=== PATIENT | female | born 1935 | race Caucasian/White ===

== ENCOUNTER 2017-10-25 17:44 | Emergency (ER) | payer MEDICARE ==
--- NOTE | 2017-10-25 18:15 | ER Document Report ---
ED General - General Chief Complaint: Fall Injury Stated Complaint: FALL LEG PAIN Time Seen by Provider: 10/25/17 18:10 Notes: 82-year-old female here with complaints of some left-sided hip pain that started after she slipped and fell 3 days ago. At the time of the fall, she refused to go to the emergency department however she was seen by her PCP today who insisted that she come to have an x-ray performed. Pain is worse somewhat with movement. Pain is improved with minimizing movement. She has been taking tramadol for the pain. She currently has a C1-C2 fracture for which she is wearing a collar however states that she did not hit or injure her neck during the fall. TRAVEL OUTSIDE OF THE [place] IN LAST 30 DAYS: No - Related Data Allergies/Adverse Reactions: Penicillins Allergy (Intermediate, Verified 10/25/17 17:46) Past Medical History - Social History Smoking Status: Former Smoker Chew tobacco use (# tins/day): No Frequency of alcohol use: None Drug Abuse: None Family History: Reviewed & Not Pertinent Patient has suicidal ideation: No Patient has homicidal ideation: No - Past Medical History Cardiac Medical History: Denies: Hx Coronary Artery Disease, Hx Heart Attack, Hx Hypertension Pulmonary Medical History: Denies: Hx Asthma, Hx Bronchitis, Hx COPD, Hx Pneumonia Neurological Medical History: Denies: Hx Cerebrovascular Accident, Hx Seizures Renal/ Medical History: Denies: Hx Peritoneal Dialysis GI Medical History: Reports: Hx Gastroesophageal Reflux Disease, Hx Hiatal Hernia. Denies: Hx Hepatitis, Hx Ulcer Musculoskeltal Medical History: Reports Hx Arthritis Infectious Medical History: Denies: Hx Hepatitis Past Surgical History: Reports: Hx Orthopedic Surgery. Denies: Hx Hysterectomy , Hx Mastectomy, Hx Open Heart Surgery, Hx Pacemaker - Immunizations Hx Diphtheria, Pertussis, Tetanus Vaccination: Yes - unknown Hx Pneumococcal Vaccination: 05/22/10 Review of Systems - Review of Systems Notes: See history of present illness for pertinent positive review of systems; otherwise all review of systems have been reviewed and are negative Physical Exam - Vital signs Vitals: Temp Pulse Resp BP Pulse Ox 98.6 F 82 16 139/86 H 99 10/25/17 17:57 10/25/17 17:57 10/25/17 17:57 10/25/17 17:57 10/25/17 17:57 - Notes Notes: PHYSICAL EXAMINATION: GENERAL: Well-appearing and in no acute distress. HEAD: Atraumatic, normocephalic. EYES: Pupils equal round and reactive to light, extraocular movements intact, sclera anicteric, conjunctiva are normal. ENT: nares patent, oropharynx clear without exudates. Moist mucous membranes. NECK: Normal range of motion, supple without lymphadenopathy LUNGS: CTAB and equal. No wheezes rales or rhonchi. HEART: Regular rate and rhythm without murmurs ABDOMEN: Soft, no tenderness. No guarding, no rebound EXTREMITIES: Normal range of motion, no pitting edema. No cyanosis. There is some minimal to mild tenderness palpation of the left hip in the area of the greater trochanter. Minimal ecchymosis seen in this area as well however no deformity. Patient able to stand using her walker with no difficulty or increased pain. NEUROLOGICAL: Cranial nerves grossly intact. Normal sensory/motor exams. PSYCH: Normal mood, normal affect. SKIN: Warm, Dry, normal turgor, no rashes or lesions noted Course - Re-evaluation Re-evalutation: 10/25/17 18:14 MEDICAL DECISION MAKING: Concern for musculoskeletal strain versus fracture versus dislocation I have very low clinical suspicion for any acute emergent pathology Will obtain x-ray and go from there Patient understands and agrees to the plan of care 10/25/17 19:39 X-ray does not show any acute fractures Discussed findings with patient and daughter Instructed follow-up PCP next day or few They understand and agree plan of care - Vital Signs Vital signs: Temp Pulse Resp BP Pulse Ox 98.6 F 82 16 139/86 H 99 10/25/17 17:57 10/25/17 17:57 10/25/17 17:57 10/25/17 17:57 10/25/17 17:57 Discharge - Discharge Clinical Impression: Fall Qualifiers: Encounter type: initial encounter Qualified Code(s): W19.XXXA - Unspecified fall, initial encounter Condition: Good Disposition: HOME, SELF-CARE Additional Instructions: The x-ray did not show any broken bones. Continue using your home pain medications as needed for pain. You were seen in the emergency department at [facility]. If you were given any sedating medications, be sure not to operate heavy machinery (example - driving) and be sure you are not too sedated to walk appropriately. Please followup with your primary physician in the next few days for further management/evaluation. Please return to the emergency department for worsening of symptoms or any symptom that you deem to be concerning or life-threatening. Thank you for allowing us to be part of your care.
--- NOTE | 2017-10-25 19:11 | RADIOLOGY REPORT (SQ) ---
EXAM DESCRIPTION: HIP LEFT AP/LATERAL COMPLETED DATE/TIME: 10/25/2017 6:38 pm REASON FOR STUDY: s/p fall COMPARISON: None. NUMBER OF VIEWS: Two views. TECHNIQUE: AP pelvis and additional frog-leg view of the left hip. LIMITATIONS: None. FINDINGS: MINERALIZATION: Normal. LEFT HIP: No fracture or dislocation. No worrisome bone lesions. RIGHT HIP: No fracture or dislocation. No worrisome bone lesions. PUBIS AND ISCHIUM: No fracture. PELVIS: No fracture. SACRUM: No fracture or dislocation. No worrisome bone lesions. LOWER LUMBAR SPINE: No fracture or dislocation. No worrisome bone lesions. No significant disc disea se. SOFT TISSUES: No findings. OTHER: No other significant finding. IMPRESSION: NEGATIVE STUDY OF THE LEFT HIP AND PELVIS. NO RADIOGRAPHIC EVIDENCE OF ACUTE INJURY. TECHNICAL DOCUMENTATION: JOB ID: [id number] [employer]- All Rights Reserved Reading location - IP/workstation name: [email or web address]
[2017-10-25 19:48] VITALS: BP 149/75
== END 2017-10-25 19:47 | disposition home or self-care (01) ==
LOC: ER 17:44
DX: S89.92XA Unspecified injury of left lower leg, initial encounter (principal); W01.0XXA Fall on same level from slipping, tripping and stumbling without subsequent striking against object, initial encounter; Z88.0 Allergy status to penicillin
CPT/HCPCS: 99283

== ENCOUNTER 2017-10-27 02:59 | Inpatient (IN) | payer MEDICARE ==
--- NOTE | 2017-10-27 03:39 | ER Document Report ---
ED General - General Chief Complaint: Leg Pain Stated Complaint: LEFT LEG PAIN Time Seen by Provider: 10/27/17 03:14 TRAVEL OUTSIDE OF THE [place] IN LAST 30 DAYS: No - HPI Notes: Patient is an 82-year-old female who presents to the ED complaining of increased left hip and left femur pain status post fall 5 days ago. Patient was evaluated 2 days ago and had a negative hip x-ray performed. Patient was ambulatory at that time. Daughter states that she has been ambulatory without any difficulties, but has noticed "soreness" to the left leg and hip. Patient states that this past night her pain became worse and she can no longer weight- bear. Patient states that the pain became very sharp so they called EMS to bring her back for reevaluation. Patient is wearing a c-collar for a C1-C2 fracture from a previous injury in August. Patient has otherwise been eating and drinking without any difficulties. She is urinating normally and having normal bowel movements. No other concerns or complaints at this time. No reinjury. No other falls. Denies any headache, fever, recent head injury, neck pain, changes in vision/speech/mentation/hearing, URI, sore throat, chest pain, palpitations, syncope, cough, shortness of breath, wheeze, dyspnea, abdominal pain, nausea/vomiting/diarrhea, urinary retention, dysuria, hematuria , loss of control of bowel or bladder, numbness/tingling, saddle anesthesia, muscle paralysis/weakness, or rash. - Related Data Allergies/Adverse Reactions: Penicillins Allergy (Intermediate, Verified 10/25/17 17:46) Past Medical History - Social History Smoking Status: Unknown if Ever Smoked Family History: Reviewed & Not Pertinent Patient has suicidal ideation: No Patient has homicidal ideation: No - Past Medical History Cardiac Medical History: Denies: Hx Coronary Artery Disease, Hx Heart Attack, Hx Hypertension Pulmonary Medical History: Denies: Hx Asthma, Hx Bronchitis, Hx COPD, Hx Pneumonia Neurological Medical History: Denies: Hx Cerebrovascular Accident, Hx Seizures Renal/ Medical History: Denies: Hx Peritoneal Dialysis GI Medical History: Reports: Hx Gastroesophageal Reflux Disease, Hx Hiatal Hernia. Denies: Hx Hepatitis, Hx Ulcer Musculoskeltal Medical History: Reports Hx Arthritis Infectious Medical History: Denies: Hx Hepatitis Past Surgical History: Reports: Hx Orthopedic Surgery, Hx Urinary Tract Surgery - bladder reconstruction. Denies: Hx Hysterectomy, Hx Mastectomy, Hx Open Heart Surgery, Hx Pacemaker - Immunizations Hx Diphtheria, Pertussis, Tetanus Vaccination: Yes - unknown Hx Pneumococcal Vaccination: 05/22/10 Review of Systems - Review of Systems -: Yes All other systems reviewed and negative Physical Exam - Vital signs Vitals: Resp Pulse Ox 12 99 10/27/17 03:13 10/27/17 03:13 - Notes Notes: PHYSICAL EXAMINATION: GENERAL: Well-appearing, well-nourished and in no acute distress. A&Ox4. Answers questions appropriately. HEAD: Atraumatic, normocephalic. EYES: Pupils equal round and reactive to light, extraocular movements intact, sclera anicteric, conjunctiva are normal. NECK: Normal range of motion, supple without lymphadenopathy. c-collar in place. LUNGS: Breath sounds clear to auscultation bilaterally and equal. No wheezes rales or rhonchi. HEART: Regular rate and rhythm without murmurs, rubs, gallops. ABDOMEN: Soft, nontender, nondistended abdomen. No guarding, no rebound. No masses appreciated. Normal bowel sounds present. No CVA tenderness bilaterally. Musculoskeletal: Rt leg: LROM to passive/active due to pain. Strength 4+/5. + tenderness to the left lateral hip and to the left femur. N/V intac distal. Niyah neg. b/l. Calves are soft, non-tender. No thigh erythema, warmth, swelling, or obvious ecchymosis. Extremities: No cyanosis, clubbing, or edema b/l. Peripheral pulses 2+. Capillary refill less than 3 seconds. NEUROLOGICAL: Cranial nerves grossly intact. Normal speech, normal gait. Normal sensory, motor exams PSYCH: Normal mood, normal affect. SKIN: Warm, Dry, normal turgor, no rashes or lesions noted. Course - Re-evaluation Re-evalutation: 10/27/17 04:27 Ct left hip ordered Femur XR ordered. Vitals acceptable. Report: "Acute mildly displaced subcapital fracture of the left hip. The femoral neck is displaced superiorly relative to the femoral head. Degree of displacement is significantly increased from the comparison study." Fentanyl ordered. Pt already given toradol and tylenol. Pre-op labs/imaging ordered. CBC, CMP, CXR, EKG unremarkable for acute pathology. Pt made NPO. 10/27/17 05:[address] Osborn who will accept patient as a consult. Spoke with Dr. Ellis who accepted patient for admit. - Vital Signs Vital signs: Temp Pulse Resp BP Pulse Ox 98.5 F 20 176/70 H 99 10/27/17 03:14 10/27/17 04:19 10/27/17 04:19 10/27/17 04:19 - Laboratory Result Diagrams: 10/27/17 04:40 10/27/17 04:40 Laboratory results interpreted by me: 10/27/17 10/27/17 04:40 04:40 WBC 13.2 H RBC 3.66 L Hgb 11.1 L Hct 33.1 L Seg Neutrophils % 81.3 H Lymphocytes % 9.5 L Absolute Neutrophils 10.8 H BUN 22 H Creatinine 0.50 L Discharge - Discharge Clinical Impression: Hip fracture, left Qualifiers: Encounter type: initial encounter Fracture type: closed Qualified Code(s): S72.002A - Fracture of unspecified part of neck of left femur, initial encounter for closed fracture Condition: Stable Disposition: ADMITTED INPATIENT Unit Admitted: Medical Floor Referrals: SEDRICK SALEH FNP [Primary Care Provider] - Follow up as needed
[2017-10-27] MEDS ORDERED: ACETAMINOPHEN 325 MG TABLET PO ONE (03:52)
--- NOTE | 2017-10-27 03:58 | RADIOLOGY REPORT (SQ) ---
EXAM DESCRIPTION: CT PELVIS WITHOUT CONTRAST CLINICAL HISTORY: increased left hip pain COMPARISON: 10/25/2017 TECHNIQUE: CT of the pelvis without IV contrast. FINDINGS: Pelvis: Aortoiliac atherosclerosis. Fat-containing right inguinal hernia. Prior hysterectomy. Urinary bladder is unremarkable. No free pelvic fluid or lymphadenopathy. No dilated loops of visualized large or small bowel. No evidence of appendicitis. There is an acute mildly displaced subcapital fracture of the left hip. The femoral neck is displaced superiorly relative to the femoral head. Degree of displacement is significantly increased from the comparison study. Diffuse osteopenia. Degenerative change of the hips, sacroiliac joints, visualized lumbar spine. No lytic osseous lesions identified. DLP: 227.53 mGy-cm IMPRESSION: 1. Acute mildly displaced subcapital fracture of the left hip. The femoral neck is displaced superiorly relative to the femoral head. Degree of displacement is significantly increased from the comparison study. This exam was performed according to our departmental dose-optimization program, which includes automated exposure control, adjustment of the mA and/or kV according to patient size and/or use of iterative reconstruction technique.
--- NOTE | 2017-10-27 04:09 | RADIOLOGY REPORT (SQ) ---
EXAM DESCRIPTION: FEMUR LEFT CLINICAL HISTORY: increased left mid femur pain COMPARISON: None. FINDINGS: 2 views of the left femur. Acute mildly displaced subcapital fracture of the left femoral neck. Atherosclerotic vascular calcification. Phleboliths in the pelvis. Osteopenia. IMPRESSION: Acute mildly displaced subcapital fracture of the left femoral neck.
[2017-10-27] MEDS ORDERED: FENTANYL CITRATE INJ/PF 100 MCG/2 ML AMPUL IV ONE ×2 (04:26→05:49)
--- NOTE | 2017-10-27 04:36 | RADIOLOGY REPORT (SQ) ---
EXAM DESCRIPTION: CHEST SINGLE VIEW CLINICAL HISTORY: pre-op work up hip surgery. COMPARISON: None. FINDINGS: Single frontal view of the chest. Atherosclerotic calcification tortuosity of thoracic aorta. Heart is not enlarged. Leads overlie the chest. No consolidation, pneumothorax, or pleural effusion. No acute osseous abnormality identified. Upper abdominal soft tissues are unremarkable. IMPRESSION: 1. No acute pneumonic process identified.
[2017-10-27 04:47] LABS: ABSOLUTE BASOPHILS # (AUTO) 0.1 10^3/uL (0.0-0.2); ABSOLUTE EOSINOPHILS # (AUTO) 0.1 10^3/uL (0.0-0.6); ABSOLUTE LYMPHOCYTES (AUTO) 1.3 10^3/uL (0.5-4.7); ABSOLUTE NEUT (AUTO) 10.8 10^3/uL (1.7-8.2); BASOPHILS % (AUTO) 0.7 % (0-2); EOSINOPHILS % (AUTO) 1.1 % (0-6); HEMATOCRIT 33.1 % (36.0-47.0); HEMOGLOBIN 11.1 g/dL (12.0-15.5); LYMPHOCYTES % (AUTO) 9.5 % (13-45); MEAN CORPUSCULAR HEMOGLOBIN 30.4 pg (27.0-33.4); MEAN CORPUSCULAR HGB CONC 33.5 g/dL (32.0-36.0); MEAN CORPUSCULAR VOLUME 91 fl (80-97); MONOCYTES % (AUTO) 7.4 % (3-13); PLATELET COUNT 409 10^3/uL (150-450); RED BLOOD COUNT 3.66 10^6/uL (3.72-5.28); RED CELL DISTRIBUTION WIDTH 13.8 % (11.5-14.0); SEGMENTED NEUTROPHILS % (AUTO) 81.3 % (42-78); TOTAL CELLS COUNTED % (AUTO) 100 %; WHITE BLOOD COUNT 13.2 10^3/uL (4.0-10.5)
[2017-10-27 05:03] LABS: ALANINE AMINOTRANSFERASE 19 U/L (9-52); ALBUMIN 3.8 g/dL (3.5-5.0); ALKALINE PHOSPHATASE 105 U/L (38-126); ANION GAP 12 (5-19); ASPARTATE AMINO TRANSFERASE 18 U/L (14-36); BILIRUBIN,DIRECT 0.2 mg/dL (0.0-0.4); BILIRUBIN,TOTAL 0.3 mg/dL (0.2-1.3); BLOOD UREA NITROGEN 22 mg/dL (7-20); CALCIUM 9.5 mg/dL (8.4-10.2); CARBON DIOXIDE 23 mmol/L (22-30); CHLORIDE 102 mmol/L (98-107); GLUCOSE 101 mg/dL (75-110); POTASSIUM 3.7 mmol/L (3.6-5.0); SODIUM 137.3 mmol/L (137-145); TOTAL PROTEIN 6.6 g/dL (6.3-8.2)
[2017-10-27] MEDS ORDERED: NORMAL SALINE 1000 ML 1,000 ML IV ONE (05:40)
[2017-10-27 06:02] LABS: INTERNATIONAL RATION (INR) 0.94; PROTHROMBIN TIME 13.2 SEC (11.4-15.4)
[2017-10-27] MEDS ORDERED: GLUCAGON,HUMAN RECOMB 1 MG INJ SUBCUT PRN (06:02)
[2017-10-27] MEDS ORDERED: ALBUTEROL SULFATE 0.083% NEB 2.5 MG/3 ML AMPUL NEB PRN (06:02)
[2017-10-27] MEDS ORDERED: DEXTROSE 50%-WATER 25 GM/50 ML DISP.SYRIN IV PRN ×2 (06:02)
[2017-10-27] MEDS ORDERED: PROMETHAZINE HCL INJ 25 MG/1 ML VIAL IV PRN ×3 (06:02→14:55)
[2017-10-27] MEDS ORDERED: DEXTROSE 40% GEL 15 GM TUBE PO PRN ×2 (06:02)
[2017-10-27] MEDS ORDERED: ACETAMINOPHEN 650 MG SUPP.RECT PR PRN (06:02)
[2017-10-27 06:03] LABS: PARTIAL THROMBOPLASTIN TIME 31.4 SEC (23.5-35.8)
[2017-10-27 06:05] LABS: APPEARANCE,URINE SLIGHTLY-CLOUDY; BILIRUBIN,URINE NEGATIVE (NEGATIVE); COLOR,URINE YELLOW; GLUCOSE, URINE NEGATIVE (NEGATIVE); KETONES,URINE TRACE mg/dL (NEGATIVE); LEUKOCYTE ESTERASE,URINE NEGATIVE (NEGATIVE); NITRITE,URINE NEGATIVE (NEGATIVE); PROTEIN,URINE NEGATIVE (NEGATIVE); URINE SPECIFIC GRAVITY 1.009; UROBILINOGEN,URINE NEGATIVE mg/dL (<2.0)
[2017-10-27] MEDS ORDERED: HYDRALAZINE HCL INJ/PF 20 MG/1 ML SDV IV PRN (06:06)
--- NOTE | 2017-10-27 06:50 | PDOC CONSULTATION ---
Consultation Consult Date: 10/27/17 Consult reason:: Left hip pain History of Present Illness Admission Date/PCP: 10/27/17 05:57 DELMI ANTHONY History of Present Illness: KARI DAWSON is a 82 year old female The patient is a 82-year-old white female who is at least a household ambulator probably limited community ambulator who fell on Tuesday and had subsequent left hip pain. In the emergency room visit led to an x-ray which was interpreted as normal. The patient presented overnight with an inability to weight-bear in the left lower extremity x-rays demonstrated a displaced left femoral neck fracture. Orthopedics is consulted for fracture management. Past Medical History Cardiac Medical History: Denies: Coronary Artery Disease, Myocardial Infarction, Hypertension Pulmonary Medical History: Denies: Asthma, Bronchitis, Chronic Obstructive Pulmonary Disease (COPD), Pneumonia Neurological Medical History: Denies: Seizures GI Medical History: Reports: Gastroesophageal Reflux Disease, Hiatal Hernia Denies: Hepatitis Musculoskeltal Medical History: Reports: Arthritis Hematology: Reports: Anemia - 04/2011 Denies: Sickle Cell Disease Past Surgical History Past Surgical History: Reports: Orthopedic Surgery - Knee replacement Denies: Amputation, Hysterectomy, Mastectomy, Pacemaker Social History Information Source: Patient, Relative, [facility] Records Smoking Status: Unknown if Ever Smoked Family History Family History: Reviewed & Not Pertinent Parental Family History Reviewed: No Children Family History Reviewed: No Sibling(s) Family History Reviewed.: No Medication/Allergy Home Medications: Bupropion HCl [Wellbutrin Sr] 150 mg PO DAILY 07/23/11 Ibuprofen [Motrin Ib] 600 mg PO PRN 07/23/11 Multivit,Tx with Iron,Minerals [Complete Multivitamin] 1 each PO DAILY 07/23/11 Lisinopril 20 mg PO DAILY 04/08/14 Allergies/Adverse Reactions: Penicillins Allergy (Intermediate, Verified 10/25/17 17:46) Review of Systems All systems: as per H Physical Exam Vital Signs: Temp Pulse Resp BP Pulse Ox 36.9 C 16 155/66 H 97 10/27/17 03:14 10/27/17 06:01 10/27/17 06:00 10/27/17 06:01 Physical Exam: Patient is a frail-appearing elderly white female lying [facility]. She is wearing a cervical collar from previous C1-C2 injury in August following a fall. She is alert oriented appropriate. She is surrounded by caring family. General appearance: PRESENT: mild distress Head exam: PRESENT: normocephalic Respiratory exam: PRESENT: unlabored Cardiovascular exam: PRESENT: RRR Pulses: PRESENT: +1 pedal pulses bilateral Vascular exam: PRESENT: normal capillary refill GI/Abdominal exam: PRESENT: soft Rectal exam: PRESENT: deferred Extremities exam: PRESENT: other - Left lower extremity shortened and externally rotated. Distal neurovascular examination is intact. Skin is intact. Neurological exam: PRESENT: alert, awake, oriented to person, oriented to place , oriented to time, oriented to situation. ABSENT: motor sensory deficit Psychiatric exam: PRESENT: appropriate affect, normal mood. ABSENT: homicidal ideation, suicidal ideation Skin exam: PRESENT: dry, intact, warm. ABSENT: cyanosis, rash Results Impressions: Femur X-Ray 10/27/17 03:24 IMPRESSION: Acute mildly displaced subcapital fracture of the left femoral neck. Lower Extremity CT 10/27/17 03:26 IMPRESSION: 1. Acute mildly displaced subcapital fracture of the left hip. The femoral neck is displaced superiorly relative to the femoral head. Degree of displacement is significantly increased from the comparison study. This exam was performed according to our departmental dose-optimization program, which includes automated exposure control, adjustment of the mA and/or kV according to patient size and/or use of iterative reconstruction technique. Chest X-Ray 10/27/17 04:18 IMPRESSION: 1. No acute pneumonic process identified. Status: Imported from PACS Assessment & Plan - Diagnosis (1) Left displaced femoral neck fracture Is this a current diagnosis for this admission?: Yes Plan: Patient be best served with hemiarthroplasty. This be performed this morning pending or availability and medical clearance. (2) C1 cervical fracture Is this a current diagnosis for this admission?: Yes Plan: This is a result of a fall in August. Patient is being treated in [facility] with a cervical collar. This remained in place throughout her care. - Time Time Spent: 50 to 70 Minutes Anticipated discharge: SNF Within: Other
--- NOTE | 2017-10-27 09:22 | PDOC H&P ---
History of Present Illness Admission Date/PCP: 10/27/17 05:57 DELMI ANTHONY Patient complains of: Left hip fracture post mechanical fall few days ago. History of Present Illness: KARI DAWSON is a 82 year old female with history of C1-C2 fracture (post fall on 08/2017, currently in hard collar), osteoporosis and hypertension admitted with above-mentioned complaints. Most of the history was obtained from her daughter at bedside. The patient apparently has an unsteady gait and uses a walker to ambulate which she sometimes forgets to use it. On 10/21/2017 while standing in the kitchen, she apparently tried to turn and lost her balance. She fell onto her left side and subsequently complained of generalized pain. She was brought to this hospital 3 days later on 10/25/2017 where an x-ray of her left hip and pelvis were done. They were both negative for any acute findings so she was discharged home. The patient continued to ambulate with her walker, but yesterday evening while trying to get up off the toilet, she was unable to bear weight. She started complaining of severe left hip pain so her family decided to bring her back to the hospital for further evaluation. There was no report of any chest pain, shortness of breath, nausea vomiting, fever chills, dizziness or lightheadedness or any syncope but the patient felt nauseous yesterday. She denied any diarrhea but she has chronic constipation for about a week now. She was started recently on Amitiza by her PCP. She denied any urinary symptoms. In the ED, her temperature was not recorded, heart rate 83, respiratory rate 17 , blood pressure 155/66 with oxygen saturation of 98% on room air. Her WBC was 13.2 but her UA and chest x-ray were both negative. An x-ray of her left hip and a CAT scan of left lower extremity were done which showed acute mildly displaced subcapital fracture of the left femoral head. She received 50 mcg IV fentanyl 2. Past Medical History Medical History: Other - According to family and based on previous records. Cardiac Medical History: Reports: Hypertension - According to the patient/ family and based on previous records. Denies: Coronary Artery Disease, Myocardial Infarction Pulmonary Medical History: Denies: Asthma, Bronchitis, Chronic Obstructive Pulmonary Disease (COPD), Pneumonia Neurological Medical History: Denies: Seizures GI Medical History: Reports: Gastroesophageal Reflux Disease, Hiatal Hernia Denies: Hepatitis Musculoskeltal Medical History: Reports: Arthritis, Other - osteoporosis Psychiatric Medical History: Reports: Depression Hematology: Reports: Anemia - 04/2011 Denies: Sickle Cell Disease Past Surgical History Past Surgical History: Reports: Hysterectomy, Orthopedic Surgery - right Knee replacement 04/2017., Other - right cornea surgery and cataract bilaterally. several bladder surgeries. Denies: Amputation, Mastectomy, Pacemaker Social History Smoking Status: Former Smoker Cigarettes Packs Per Day: 0 - Used to smoke less than a pack a day for a few years. Frequency of Alcohol Use: None Hx Recreational Drug Use: No - Advance Directive Resuscitation Status: Full Code Family History Parental Family History Reviewed: Yes - Mother: CAD and diabetes. Brother CAD. Children Family History Reviewed: No Sibling(s) Family History Reviewed.: Yes Medication/Allergy Home Medications: Amlodipine Besylate [Norvasc 5 mg Tablet] 5 mg PO DAILY 10/27/17 Aspirin [Aspirin 81 mg Chewable Tablet] 81 mg PO DAILY 10/27/17 Bupropion HCl [Wellbutrin Sr 150 mg Tablet] 1 tab PO Q12 10/27/17 Dorzolamide HCl/Timolol Maleat [Cosopt Eye Drops] 1 drop OU BID 10/27/17 Lubiprostone [Amitiza 24 Mcg Capsule] 24 mcg PO BID 10/27/17 Meloxicam [Mobic] 7.5 mg PO DAILY 10/27/17 Omeprazole 20 mg PO QHS 10/27/17 Prednisolone Acetate [Pred Forte] 1 drop OS BID 10/27/17 Tramadol HCl [Ultram 50 mg Tablet] 50 mg PO Q4HP PRN 10/27/17 Allergies/Adverse Reactions: Penicillins Allergy (Intermediate, Verified 10/25/17 17:46) Review of Systems ROS unobtainable: Other - Pertinent positives and negatives as detailed in the HPI. Physical Exam Vital Signs: Temp Pulse Resp BP Pulse Ox 98.5 F 16 155/66 H 97 10/27/17 03:14 10/27/17 06:01 10/27/17 06:00 10/27/17 06:01 General appearance: PRESENT: no acute distress, thin Head exam: PRESENT: atraumatic, normocephalic Eye exam: PRESENT: PERRLA Ear exam: PRESENT: normal external ear exam Mouth exam: PRESENT: dry mucosa, tongue midline Neck exam: PRESENT: other - Limited range of motion of her neck (in hard collar post C1 C2 fx in 08/2017. Respiratory exam: PRESENT: decreased breath sounds. ABSENT: rales, rhonchi, wheezes Cardiovascular exam: PRESENT: RRR - S1 S2 normal., systolic murmur Pulses: PRESENT: normal dorsalis pedis pul GI/Abdominal exam: PRESENT: normal bowel sounds, soft. ABSENT: distended, guarding, rebound, tenderness Rectal exam: PRESENT: deferred Extremities exam: PRESENT: other - Unable to move her left leg since acute hip fracture.. ABSENT: pedal edema Neurological exam: PRESENT: alert, awake, oriented to person, motor sensory deficit - left leg since acute hip fracture. Skin exam: PRESENT: dry, intact, warm. ABSENT: cyanosis, rash Results Laboratory Results: CBC: WBC 13.2, hemoglobin 11.1, hematocrit 33.1, MCV 91, RDW 13.8, platelets 409. CMP: Sodium 137.3, potassium 3.7, chloride 102, bicarb 23, anion gap 12, BUN 22 , creatinine 0.5, liver enzymes within normal limits. PT/INR: Pending. Troponin 1: pending. UA negative. EKG Comments: EKG: Sinus rhythm, ventricular rate 75, axis +20, QTC prolongation, first- degree AV block, no acute changes. No previous EKG to compare. Impressions: Femur X-Ray 10/27/17 03:24 IMPRESSION: Acute mildly displaced subcapital fracture of the left femoral neck. Lower Extremity CT 10/27/17 03:26 IMPRESSION: 1. Acute mildly displaced subcapital fracture of the left hip. The femoral neck is displaced superiorly relative to the femoral head. Degree of displacement is significantly increased from the comparison study. This exam was performed according to our departmental dose-optimization program, which includes automated exposure control, adjustment of the mA and/or kV according to patient size and/or use of iterative reconstruction technique. Chest X-Ray 10/27/17 04:18 IMPRESSION: 1. No acute pneumonic process identified. Assessment & Plan - Diagnosis (1) Left displaced femoral neck fracture Is this a current diagnosis for this admission?: Yes Plan: post mechanical fall. CBC, BMP, UA, twelve-lead EKG and chest x-ray reviewed. PT/INR and troponin 1 still pending. I will follow-up the rest of her blood work but I do not anticipate any delay in proceeding to surgery today. (2) Leukocytosis Is this a current diagnosis for this admission?: Yes Plan: Possibly secondary to hemoconcentration and/or stress. There is no evidence of infection at this time. UA and chest x-ray are both negative. Will start gentle hydration and repeat CBC in a.m. (3) Essential hypertension Is this a current diagnosis for this admission?: No Plan: Will continue to monitor and resume her blood pressure medications as indicated. (4) C1 cervical fracture Is this a current diagnosis for this admission?: No Plan: History of C1-C2 cervical fracture post mechanical fall in 08/2017. The patient is currently in hard collar and she is following as outpatient. Apparently, she is on tramadol twice a day and she also takes Flexeril occasionally per her daughter. Advised to avoid Flexeril in elderly if at all possible. (5) Cardiac murmur Is this a current diagnosis for this admission?: No Plan: by history. (6) Osteoporosis Is this a current diagnosis for this admission?: No Plan: Will start calcium and vitamin D. Further management can be done as outpatient. - Time Time Spent: 50 to 70 Minutes - Inpatient Certification Based on my medical assessment, after consideration of the patient's comorbidities, presenting symptoms, or acuity I expect that the services needed warrant INPATIENT care.: Yes I certify that my determination is in accordance with my understanding of Medicare's requirements for reasonable and necessary INPATIENT services [42 CFR 412.3e].: Yes
[2017-10-27] MEDS ORDERED: CALCIUM CARBONATE 250 MG/VITAMIN D3 125 UNIT TABLET PO ONE (10:00)
--- NOTE | 2017-10-27 10:32 | EKG REPORT ---
SEVERITY:- ABNORMAL ECG - SINUS RHYTHM FIRST DEGREE AV BLOCK PROBABLE LEFT ATRIAL ABNORMALITY : Confirmed by: Nehemias Berrios 27-Oct-2017 10:32:07
[2017-10-27] MEDS: NORMAL SALINE 1000 ML 1,000 ML IV PRN (11:28)
[2017-10-27] MEDS: FENTANYL CITRATE INJ/PF 100 MCG/2 ML AMPUL IV PRN ×2 (11:28→22:23)
--- NOTE | 2017-10-27 11:35 | Progress Note ---
Provider Note Provider Note: KARI DAWSON is a 82 year old female who presented to [facility] for a L hip fracture. From the hospitalist perspective, the patient is medically cleared for surgery. Her recent ECHO from 04/2017 shows chronic mild aortic stenosis, LVEF 72%. EKG shows NSR. Coags and cardiac enzymes are benign. Creatinine 0.5 and evidence of very mild anemia (Hgb 11/Hct 33) not requiring transfusion. Patient has a recent history of falling and suffering a C1 and C2 fracture. The patient was evaluated at [facility] by Neurosurgery and they did not feel that surgery was necessary, she was subsequently discharged with a [place] J collar and told to follow up in 4-6 weeks. Anesthesia, Dr. Noble, is aware that the patient is cleared for surgery. Plan to take patient to OR today.
[2017-10-27] MEDS ORDERED: MIDAZOLAM 2 MG/2 ML INJ ONE (12:21)
[2017-10-27] MEDS ORDERED: PROPOFOL INJ 200 MG/20 ML VIAL IV ONE (12:21)
[2017-10-27] MEDS ORDERED: KETAMINE HCL INJ 500 MG/10 ML VIAL ONE (12:21)
[2017-10-27] MEDS ORDERED: ACETAMINOPHEN 100 ML IV ONE (12:21)
[2017-10-27] MEDS ORDERED: FENTANYL CITRATE INJ/PF 100 MCG/2 ML AMPUL ONE (12:21)
[2017-10-27] MEDS ORDERED: THROMBIN (BOVINE) TOPICAL 20000 UNIT VIAL ONE (12:27)
[2017-10-27] MEDS ORDERED: THROMBIN (BOVINE) 5000 UNIT EPITAXIS KIT ONE (12:27)
[2017-10-27] MEDS ORDERED: BUPIVACAINE INJ/PF LIPOSOME/PF 266 MG/20 ML SDV ONE (12:28)
[2017-10-27] MEDS ORDERED: VANCOMYCIN HCL INJ 500 MG VIAL ONE (12:48)
[2017-10-27] MEDS ORDERED: TRANEXAMIC ACID INJ/PF 1,000 MG/10 ML SDV IV ONE ×3 (12:49→16:08)
[2017-10-27] MEDS ORDERED: EPHEDRINE SULFATE INJ 50 MG/1 ML AMPULE ONE (13:03)
[2017-10-27] MEDS ORDERED: VASOPRESSIN INJ 20 UNIT/1 ML VIAL ONE (13:03)
[2017-10-27] MEDS ORDERED: BUPIVACAINE HCL/DEX-WATER/PF 15 MG/2 ML AMPULE ONE (13:34)
[2017-10-27] MEDS ORDERED: DEXAMETHASONE SOD PHOSPHATE INJ 4 MG/1 ML VIAL ONE (13:41)
[2017-10-27] MEDS ORDERED: ONDANSETRON HCL INJ/PF 4 MG/2 ML SDV ONE (13:41)
[2017-10-27] MEDS ORDERED: LIDOCAINE 2% INJ-PF (20 MG/ML) 2 ML AMPUL ONE (13:41)
--- NOTE | 2017-10-27 14:13 | Operative Report ---
Operative Report DATE OF SURGERY: 10/27/17 PREOPERATIVE DIAGNOSIS: Left femoral neck fracture OPERATION: Left proximal femoral hemiarthroplasty ANESTHESIA: Spinal TISSUE REMOVED OR ALTERED: Bone to pathology ESTIMATED BLOOD LOSS: 50 PROCEDURE: With the patient in a right lateral decubitus position the left lower extremity hindquarter prepped and draped in a sterile fashion. A curvilinear incision made over the greater trochanter a posterior approach the hip was taken. The femur was retracted anteriorly and underlying femoral neck and head are retrieved using a corkscrew. The femoral head was measured and noted to be 44 millimeters. Attention is now turned to the femur. Access is gained to the femoral canal using a box osteotome to the piriformis fossa. The femur is then prepared using a series of tapered broaches until a Madelin accolade 2 number 5 broach is seated. A trial reduction was now performed using a 44 head and standard neck. Leg length was restored and there is excellent anterior posterior stability. A decision was made to proceed with this construct. All trial implants were removed. The final number 5 femoral stem is impacted into the canal. The standard neck is impacted onto the trunnion. Final unipolar head 44 millimeters is impacted onto the neck. The hip was reduced. The wound is copiously irrigated with pulsed lavage. A subsequent closed in layers using Vicryl and valerie. A sterile dressing is applied. The patient was returned to the recovery room in satisfactory condition.
[2017-10-27] MEDS ORDERED: DIPHENHYDRAMINE HCL 50 MG/ML VIAL IV PRN (14:55)
[2017-10-27] MEDS ORDERED: FENTANYL CITRATE INJ/PF 100 MCG/2 ML AMPUL IV PRN ×3 (14:55)
[2017-10-27] MEDS ORDERED: ONDANSETRON HCL INJ/PF 4 MG/2 ML SDV IV PRN (14:55)
[2017-10-27] MEDS ORDERED: MEPERIDINE HCL/PF INJ 25 MG/1 ML DISP.SYRIN IV PRN (14:55)
[2017-10-27] MEDS ORDERED: ONDANSETRON 4 MG TAB.RAPDIS PO PRN (15:19)
--- NOTE | 2017-10-27 16:07 | RADIOLOGY REPORT (SQ) ---
EXAM DESCRIPTION: PELVIS AP COMPLETED DATE/TIME: 10/27/2017 3:29 pm REASON FOR STUDY: post-op COMPARISON: None. NUMBER OF VIEWS: One view TECHNIQUE: Digital radiographic images of the pelvis post-procedure LIMITATIONS: None. FINDINGS: BONES: No worrisome or unexpected findings post-procedure. DEVICE: Bi-polar prothesis. Device appears in appropriate location. SOFT TISSUES: No worrisome findings. Expected postoperative soft tissue changes. IMPRESSION: SATISFACTORY POSTOPERATIVE PELVIS. TECHNICAL DOCUMENTATION: JOB ID: [id number] [employer]- All Rights Reserved Reading location - IP/workstation name: [email or web address]
[2017-10-27] MEDS: FAMOTIDINE 20 MG TABLET PO SCH ×2 (17:10→22:23)
[2017-10-27] MEDS: HEPARIN SOD (PORCINE) 5,000 UNIT/ML 1 ML SYRINGE SUBCUT SCH ×2 (17:10→22:23)
[2017-10-27] MEDS: CALCIUM CARBONATE 250 MG/VITAMIN D3 125 UNIT TABLET PO SCH (17:37)
[2017-10-27] MEDS: FENTANYL 12 MCG/HR PATCH.TD72 TD SCH (18:27)
--- NOTE | 2017-10-27 18:36 | Progress Note ---
Provider Note Provider Note: Patient seen this morning prior to surgery. She is awake, alert, oriented, and participatory in care. She states that her pain is well controlled with fentanyl, and that it is "tolerable." Will follow up with the patient when she returns from the OR
[2017-10-28] MEDS ORDERED: VANCOMYCIN HCL 1,000 MG in DEXTROSE 5%-WATER 250 ML IV ONE (02:00)
[2017-10-28] MEDS: FENTANYL CITRATE INJ/PF 100 MCG/2 ML AMPUL IV PRN ×2 (06:00→08:50)
[2017-10-28] MEDS: HEPARIN SOD (PORCINE) 5,000 UNIT/ML 1 ML SYRINGE SUBCUT SCH ×3 (06:00→21:44)
--- NOTE | 2017-10-28 06:22 | PDOC PROGRESS REPORT ---
Subjective Progress Note for:: 10/28/17 Reason For Visit: LEFT HIP FRACTURE. 82-year-old white female status post left proximal femoral hemiarthroplasty for femoral neck fracture postop day 1. Patient complaining about constipation and incisional pain. Physical Exam Vital Signs: Temp Pulse Resp BP Pulse Ox 36.6 C 102 H 19 142/85 H 98 10/28/17 04:50 10/28/17 04:50 10/28/17 04:50 10/28/17 04:50 10/28/17 04:50 Intake & Output 10/26/17 10/27/17 10/28/17 06:59 06:59 06:59 Intake Total 3540 Output Total 3325 Balance 215 Weight 51.9 kg General appearance: PRESENT: no acute distress Head exam: PRESENT: normocephalic Respiratory exam: PRESENT: unlabored Cardiovascular exam: PRESENT: RRR Pulses: PRESENT: +1 pedal pulses bilateral Vascular exam: PRESENT: normal capillary refill GI/Abdominal exam: PRESENT: soft Rectal exam: PRESENT: deferred Extremities exam: PRESENT: other - Left hip dressing clean dry and intact. Leg lengths are equal. Distal neurovascular examination is intact. Neurological exam: PRESENT: alert, awake, oriented to person, oriented to place , oriented to time, oriented to situation. ABSENT: motor sensory deficit Psychiatric exam: PRESENT: appropriate affect, normal mood. ABSENT: homicidal ideation, suicidal ideation Skin exam: PRESENT: dry, intact, warm. ABSENT: cyanosis, rash Results Impressions: Pelvis X-Ray 10/27/17 00:00 IMPRESSION: SATISFACTORY POSTOPERATIVE PELVIS. Femur X-Ray 10/27/17 03:24 IMPRESSION: Acute mildly displaced subcapital fracture of the left femoral neck. Lower Extremity CT 10/27/17 03:26 IMPRESSION: 1. Acute mildly displaced subcapital fracture of the left hip. The femoral neck is displaced superiorly relative to the femoral head. Degree of displacement is significantly increased from the comparison study. This exam was performed according to our departmental dose-optimization program, which includes automated exposure control, adjustment of the mA and/or kV according to patient size and/or use of iterative reconstruction technique. Chest X-Ray 10/27/17 04:18 IMPRESSION: 1. No acute pneumonic process identified. Status: Imported from PACS Assessment & Plan - Diagnosis (1) Left displaced femoral neck fracture Is this a current diagnosis for this admission?: Yes Plan: Postop day 1 left proximal femoral hemiarthroplasty. Patient to be seen by physical therapy for weightbearing as tolerated ambulation. Social work consulted for discharge planning. (2) C1 cervical fracture Is this a current diagnosis for this admission?: No Plan: Stable and soft collar (3) Constipation Is this a current diagnosis for this admission?: Yes Plan: Mag citrate ordered - Time Time Spent with patient: 15-24 minutes Anticipated discharge: SNF Within: within 48 hours
[2017-10-28 07:34] LABS: ABSOLUTE BASOPHILS # (AUTO) 0.1 10^3/uL (0.0-0.2); ABSOLUTE LYMPHOCYTES (AUTO) 1.9 10^3/uL (0.5-4.7); ABSOLUTE MONOCYTES (AUTO) 1.1 10^3/uL (0.1-1.4); ABSOLUTE NEUT (AUTO) 8.5 10^3/uL (1.7-8.2); BASOPHILS % (AUTO) 0.5 % (0-2); EOSINOPHILS % (AUTO) 0.1 % (0-6); HEMATOCRIT 30.8 % (36.0-47.0); HEMOGLOBIN 10.4 g/dL (12.0-15.5); LYMPHOCYTES % (AUTO) 16.2 % (13-45); MEAN CORPUSCULAR HEMOGLOBIN 30.7 pg (27.0-33.4); MEAN CORPUSCULAR HGB CONC 33.9 g/dL (32.0-36.0); MEAN CORPUSCULAR VOLUME 90 fl (80-97); MONOCYTES % (AUTO) 9.2 % (3-13); PLATELET COUNT 361 10^3/uL (150-450); RED BLOOD COUNT 3.41 10^6/uL (3.72-5.28); RED CELL DISTRIBUTION WIDTH 13.6 % (11.5-14.0); TOTAL CELLS COUNTED % (AUTO) 100 %; WHITE BLOOD COUNT 11.5 10^3/uL (4.0-10.5)
[2017-10-28 07:56] LABS: ANION GAP 10 (5-19); BLOOD UREA NITROGEN 8 mg/dL (7-20); CALCIUM 9.3 mg/dL (8.4-10.2); CARBON DIOXIDE 26 mmol/L (22-30); CHLORIDE 103 mmol/L (98-107); GLUCOSE 94 mg/dL (75-110); PHOSPHORUS 3.9 mg/dL (2.5-4.5); POTASSIUM 3.4 mmol/L (3.6-5.0); SODIUM 139.4 mmol/L (137-145)
[2017-10-28] MEDS: CALCIUM CARBONATE 250 MG/VITAMIN D3 125 UNIT TABLET PO SCH ×2 (08:49→17:25)
[2017-10-28] MEDS ORDERED: MAGNESIUM CITRATE 296 ML BOTTLE PO ONE (09:00)
[2017-10-28] MEDS ORDERED: ASPIRIN 81 MG TABLET, ENT COATED PO SCH (10:00)
[2017-10-28] MEDS: HYDROCODONE/ACETAMINOPHEN 5-325 MG TABLET PO PRN ×2 (11:20→17:24)
[2017-10-28] MEDS: FAMOTIDINE 20 MG TABLET PO SCH ×2 (11:21→21:44)
[2017-10-28] MEDS ORDERED: (PENDING PHARMACY ID) (Bupropion Hcl [Wellbutrin Sr 150 Mg Tablet] 1 TAB) PO SCH (12:30)
--- NOTE | 2017-10-28 16:03 | PDOC PROGRESS REPORT ---
Subjective Progress Note for:: 10/28/17 Subjective:: KARI DAWSON is a 82 year old female admitted 10/27/2017 following a fall at home. Xray showed acute mildly displaced subcapital fracture of the left femoral neck. Dr. Osborn took the patient to the OR that day for a L hip arthroplasty. PMH includes osteoporosis, hypertension, C1-C2. Patient seen this morning on rounds. She is awake, alert, oriented and in good spirits. She says that her pain is well controlled. States she only has pain following physical therapy. The plan moving forward is for the patient to receive physical therapy every day while she is at [facility], and she should transfer to acute rehab in 2-3 days (pending facility availability). Reason For Visit: LEFT HIP FRACTURE. Physical Exam Vital Signs: Temp Pulse Resp BP Pulse Ox 100.0 F 93 16 141/68 H 93 10/28/17 11:48 10/28/17 14:38 10/28/17 14:38 10/28/17 11:48 10/28/17 14:38 Intake & Output 10/27/17 10/28/17 10/29/17 06:59 06:59 06:59 Intake Total 4796 557 Output Total 5975 250 Balance -1179 307 Weight 51.9 kg General appearance: PRESENT: no acute distress Head exam: PRESENT: atraumatic Eye exam: PRESENT: conjunctiva pink Mouth exam: PRESENT: moist Neck exam: PRESENT: other - history of C spine fracture, recent discharge from [facility]. Currently in [facility]. Respiratory exam: PRESENT: clear to auscultation siara Cardiovascular exam: PRESENT: +S1, +S2, systolic murmur - patient has a hx of aortic stenosis Pulses: PRESENT: normal radial pulses GI/Abdominal exam: PRESENT: normal bowel sounds, tenderness Rectal exam: PRESENT: deferred Extremities exam: PRESENT: other - The patient requires 2 person assist to get out of bed. Musculoskeletal exam: PRESENT: tenderness - Left hip surgical site Neurological exam: PRESENT: alert, altered, awake, oriented to person, oriented to place, oriented to time, oriented to situation Psychiatric exam: PRESENT: appropriate affect Skin exam: PRESENT: normal color Results Laboratory Results: 10/28/17 07:09 10/28/17 07:09 10/28/17 10/28/17 07:09 07:09 WBC 11.5 H RBC 3.41 L Hgb 10.4 L Hct 30.8 L MCV 90 MCH 30.7 MCHC 33.9 RDW 13.6 Plt Count 361 Seg Neutrophils % 74.0 Lymphocytes % 16.2 Monocytes % 9.2 Eosinophils % 0.1 Basophils % 0.5 Absolute Neutrophils 8.5 H Absolute Lymphocytes 1.9 Absolute Monocytes 1.1 Absolute Eosinophils 0.0 Absolute Basophils 0.1 Sodium 139.4 Potassium 3.4 L Chloride 103 Carbon Dioxide 26 Anion Gap 10 BUN 8 Creatinine 0.49 L Est GFR ( Amer) > 60 Est GFR (Non-Af Amer) > 60 Glucose 94 Calcium 9.3 Phosphorus 3.9 Magnesium 1.8 Impressions: Pelvis X-Ray 10/27/17 00:00 IMPRESSION: SATISFACTORY POSTOPERATIVE PELVIS. Femur X-Ray 10/27/17 03:24 IMPRESSION: Acute mildly displaced subcapital fracture of the left femoral neck. Lower Extremity CT 10/27/17 03:26 IMPRESSION: 1. Acute mildly displaced subcapital fracture of the left hip. The femoral neck is displaced superiorly relative to the femoral head. Degree of displacement is significantly increased from the comparison study. This exam was performed according to our departmental dose-optimization program, which includes automated exposure control, adjustment of the mA and/or kV according to patient size and/or use of iterative reconstruction technique. Chest X-Ray 10/27/17 04:18 IMPRESSION: 1. No acute pneumonic process identified. Status: Imported from PACS Assessment & Plan - Diagnosis (1) Left displaced femoral neck fracture Is this a current diagnosis for this admission?: Yes Plan: POD1 following left hip arthroplasty for a displaced subcapital fracture of the left hip. Pain management includes fentanyl patch, [place], and IV fentanyl for breakthrough pain. The patient states that her pain is well controlled, will continue current regimen. Physical therapy every day while inpatient, she has already been out of bed with assistance this morning. (2) C1 cervical fracture Qualifiers: Fracture type: closed Fracture healing: with routine healing Is this a current diagnosis for this admission?: Yes Plan: Patient has a history of C1-2 fracture. She was evaluated by neurosurgery at [facility]. They discharged her home with a [place] J collar, they deemed her case nonoperative. (3) Cardiac murmur Is this a current diagnosis for this admission?: Yes Plan: The patient has a past medical history of aortic stenosis. Echocardiogram from February 2017 states that the degree of her stenosis is mild to moderate. (4) Essential hypertension Is this a current diagnosis for this admission?: No Plan: Patient restarted on her home antihypertensives. Blood pressure has been well controlled since her admission. - Time Time Spent with patient: 15-24 minutes Anticipated discharge: Acute Rehab - Inpatient Certification Based on my medical assessment, after consideration of the patient's comorbidities, presenting symptoms, or acuity I expect that the services needed warrant INPATIENT care.: Yes I certify that my determination is in accordance with my understanding of Medicare's requirements for reasonable and necessary INPATIENT services [42 CFR 412.3e].: Yes Medical Necessity: Risk of Complication if Not Cared For in Hospital - Plan Summary Plan Summary: Discharge to acute rehab
[2017-10-28] MEDS: LUBIPROSTONE 24 MCG CAPSULE PO SCH (17:25)
[2017-10-28] MEDS: PREDNISOLONE ACETATE 1% OPH SUSP 5 ML OS SCH (17:28)
[2017-10-28] MEDS ORDERED: DORZOLAMIDE HCL 2%/TIMOLOL MALEAT 0.5% OPH SOLN 10 ML OU SCH (18:00)
[2017-10-28] MEDS ORDERED: TIMOLOL MALEATE 0.5% OPH SOLN 5 ML OU ONE (18:45)
[2017-10-28] MEDS ORDERED: BRIMONIDINE TARTRATE 0.2% OPH SOLN 5 ML OU ONE (18:45)
[2017-10-28] MEDS: BUPROPION HCL 100 MG TABLET PO SCH (21:44)
[2017-10-29] MEDS: FENTANYL CITRATE INJ/PF 100 MCG/2 ML AMPUL IV PRN (04:07)
[2017-10-29] MEDS: HEPARIN SOD (PORCINE) 5,000 UNIT/ML 1 ML SYRINGE SUBCUT SCH ×3 (07:11→21:33)
[2017-10-29] MEDS: LANSOPRAZOLE 15 MG TAB.RAP.DR PO SCH (07:11)
[2017-10-29] MEDS: BUPROPION HCL 100 MG TABLET PO SCH ×3 (07:11→21:33)
--- NOTE | 2017-10-29 07:31 | PDOC PROGRESS REPORT ---
Subjective Progress Note for:: 10/29/17 Reason For Visit: LEFT HIP FRACTURE. 82-year-old white female postop day 2 left proximal femoral hemiarthroplasty for femoral neck fracture. Patient up in chair this morning complaining of pain. Physical Exam Vital Signs: Temp Pulse Resp BP Pulse Ox 37.1 C 94 16 136/83 H 94 10/29/17 03:43 10/29/17 07:00 10/29/17 03:43 10/29/17 03:43 10/29/17 03:43 Intake & Output 10/28/17 10/29/17 10/30/17 06:59 06:59 07:59 Intake Total 4796 1302 Output Total 5975 450 Balance -1179 852 Weight 51.9 kg General appearance: PRESENT: mild distress Head exam: PRESENT: normocephalic Respiratory exam: PRESENT: unlabored Cardiovascular exam: PRESENT: RRR GI/Abdominal exam: PRESENT: soft Rectal exam: PRESENT: deferred Musculoskeletal exam: PRESENT: other - Left hip dressing clean dry and intact. Leg lengths are equal. Distal neurovascular examination is intact. Neurological exam: PRESENT: alert, awake, oriented to person, oriented to place , oriented to time, oriented to situation. ABSENT: motor sensory deficit Psychiatric exam: PRESENT: appropriate affect, normal mood. ABSENT: homicidal ideation, suicidal ideation Skin exam: PRESENT: dry, intact, warm. ABSENT: cyanosis, rash Results Laboratory Results: 10/28/17 07:09 10/28/17 07:09 10/28/17 10/28/17 07:09 07:09 WBC 11.5 H RBC 3.41 L Hgb 10.4 L Hct 30.8 L MCV 90 MCH 30.7 MCHC 33.9 RDW 13.6 Plt Count 361 Seg Neutrophils % 74.0 Lymphocytes % 16.2 Monocytes % 9.2 Eosinophils % 0.1 Basophils % 0.5 Absolute Neutrophils 8.5 H Absolute Lymphocytes 1.9 Absolute Monocytes 1.1 Absolute Eosinophils 0.0 Absolute Basophils 0.1 Sodium 139.4 Potassium 3.4 L Chloride 103 Carbon Dioxide 26 Anion Gap 10 BUN 8 Creatinine 0.49 L Est GFR ( Amer) > 60 Est GFR (Non-Af Amer) > 60 Glucose 94 Calcium 9.3 Phosphorus 3.9 Magnesium 1.8 Impressions: Pelvis X-Ray 10/27/17 00:00 IMPRESSION: SATISFACTORY POSTOPERATIVE PELVIS. Femur X-Ray 10/27/17 03:24 IMPRESSION: Acute mildly displaced subcapital fracture of the left femoral neck. Lower Extremity CT 10/27/17 03:26 IMPRESSION: 1. Acute mildly displaced subcapital fracture of the left hip. The femoral neck is displaced superiorly relative to the femoral head. Degree of displacement is significantly increased from the comparison study. This exam was performed according to our departmental dose-optimization program, which includes automated exposure control, adjustment of the mA and/or kV according to patient size and/or use of iterative reconstruction technique. Chest X-Ray 10/27/17 04:18 IMPRESSION: 1. No acute pneumonic process identified. Status: Imported from PACS Assessment & Plan - Diagnosis (1) Left displaced femoral neck fracture Is this a current diagnosis for this admission?: Yes Plan: Patient with postoperative rehabilitation, weightbearing as tolerated ambulation. Limited progress with physical therapy. Dressing remains dry and laboratory evaluation is adequate. Anticipate transfer to a residential facility when bed available. (2) C1 cervical fracture Qualifiers: Fracture type: closed Fracture healing: with routine healing Is this a current diagnosis for this admission?: Yes Plan: Stable (3) Constipation Is this a current diagnosis for this admission?: Yes Plan: Resolved - Time Time Spent with patient: 15-24 minutes Anticipated discharge: SNF Within: when bed available
[2017-10-29] MEDS: HYDROCODONE/ACETAMINOPHEN 5-325 MG TABLET PO PRN ×3 (07:45→21:32)
[2017-10-29] MEDS: CALCIUM CARBONATE 250 MG/VITAMIN D3 125 UNIT TABLET PO SCH ×2 (07:45→17:47)
[2017-10-29] MEDS: ASPIRIN 81 MG TABLET, CHEWABLE PO SCH (09:42)
[2017-10-29] MEDS: FAMOTIDINE 20 MG TABLET PO SCH ×2 (09:42→21:32)
[2017-10-29] MEDS: AMLODIPINE BESYLATE 5 MG TABLET PO SCH (09:42)
[2017-10-29] MEDS: LUBIPROSTONE 24 MCG CAPSULE PO SCH ×2 (09:43→17:47)
[2017-10-29] MEDS: PREDNISOLONE ACETATE 1% OPH SUSP 5 ML OS SCH ×2 (09:43→17:48)
[2017-10-29] MEDS: TIMOLOL MALEATE 0.5% OPH SOLN 5 ML OU SCH ×2 (09:43→17:48)
[2017-10-29] MEDS: BRIMONIDINE TARTRATE 0.2% OPH SOLN 5 ML OU SCH ×2 (09:43→17:48)
[2017-10-29] MEDS: SENNOSIDES/DOCUSATE 8.6-50 MG 1 EACH TABLET PO PRN ×2 (12:19→17:47)
[2017-10-29] MEDS: MAGNESIUM HYDROXIDE SUSP 30 ML UDCUP PO PRN ×2 (12:19→17:47)
[2017-10-29] MEDS: NORMAL SALINE 1000 ML 1,000 ML IV PRN (15:33)
--- NOTE | 2017-10-29 17:33 | PDOC PROGRESS REPORT ---
Subjective Progress Note for:: 10/29/17 Subjective:: KARI DAWSON is a 82 year old female admitted 10/27/2017 following a fall at home. Xray showed acute mildly displaced subcapital fracture of the left femoral neck. Dr. Osborn took the patient to the OR that day for a L hip arthroplasty. PMH includes osteoporosis, hypertension, C1-C2. Patient seen this morning on rounds. She is awake, alert, oriented and sitting in the bedside recliner. She says that her pain is well controlled. States she only has pain following physical therapy. Reason For Visit: LEFT HIP FRACTURE. Physical Exam Vital Signs: Temp Pulse Resp BP Pulse Ox 98.0 F 77 16 109/55 L 98 10/29/17 15:32 10/29/17 15:32 10/29/17 15:32 10/29/17 15:32 10/29/17 15:32 Intake & Output 10/28/17 10/29/17 10/30/17 06:59 06:59 07:59 Intake Total 4796 1302 Output Total 5975 450 Balance -1179 852 Weight 51.9 kg General appearance: PRESENT: no acute distress Head exam: PRESENT: atraumatic Eye exam: PRESENT: conjunctiva pink Mouth exam: PRESENT: moist Respiratory exam: PRESENT: clear to auscultation saira, symmetrical, unlabored Cardiovascular exam: PRESENT: +S1, +S2 Pulses: PRESENT: normal radial pulses, normal dorsalis pedis pul GI/Abdominal exam: PRESENT: normal bowel sounds, soft Rectal exam: PRESENT: deferred Extremities exam: PRESENT: other - Limited range of motion of left lower extremity, requires two-person assist to get up out of bed. Musculoskeletal exam: PRESENT: ambulatory - Requires 2 person assist Neurological exam: PRESENT: alert, oriented to person, oriented to place, oriented to time, oriented to situation Psychiatric exam: PRESENT: appropriate affect Results Laboratory Results: 10/28/17 07:09 10/28/17 07:09 Impressions: Pelvis X-Ray 10/27/17 00:00 IMPRESSION: SATISFACTORY POSTOPERATIVE PELVIS. Femur X-Ray 10/27/17 03:24 IMPRESSION: Acute mildly displaced subcapital fracture of the left femoral neck. Lower Extremity CT 10/27/17 03:26 IMPRESSION: 1. Acute mildly displaced subcapital fracture of the left hip. The femoral neck is displaced superiorly relative to the femoral head. Degree of displacement is significantly increased from the comparison study. This exam was performed according to our departmental dose-optimization program, which includes automated exposure control, adjustment of the mA and/or kV according to patient size and/or use of iterative reconstruction technique. Chest X-Ray 10/27/17 04:18 IMPRESSION: 1. No acute pneumonic process identified. Status: Imported from PACS Assessment & Plan - Diagnosis (1) Left displaced femoral neck fracture Is this a current diagnosis for this admission?: Yes Plan: POD1 following left hip arthroplasty for a displaced subcapital fracture of the left hip. Pain management includes fentanyl patch, [place], and IV fentanyl for breakthrough pain. The patient states that her pain is well controlled, will continue current regimen. Physical therapy every day while inpatient, she has already been out of bed with assistance this morning. (2) C1 cervical fracture Qualifiers: Fracture type: closed Fracture healing: with routine healing Is this a current diagnosis for this admission?: Yes Plan: Patient has a history of C1-2 fracture. She was evaluated by neurosurgery at [facility]. They discharged her home with a [place] J collar, they deemed her case nonoperative. (3) Cardiac murmur Is this a current diagnosis for this admission?: Yes Plan: The patient has a past medical history of aortic stenosis. Echocardiogram from February 2017 states that the degree of her stenosis is mild to moderate. (4) Essential hypertension Is this a current diagnosis for this admission?: No Plan: Patient restarted on her home antihypertensives. Blood pressure has been well controlled since her admission. (5) Constipation Qualifiers: Constipation type: drug induced constipation Qualified Code(s): K59.03 - Drug induced constipation Is this a current diagnosis for this admission?: Yes Plan: Patient states she has not had a bowel movement 4 days. Started the patient on docusate, senna, and milk of magnesia. Continue on her home dose of amitzia - Time Time Spent with patient: 15-24 minutes Medications reviewed and adjusted accordingly: Yes Anticipated discharge: Acute Rehab - Inpatient Certification Based on my medical assessment, after consideration of the patient's comorbidities, presenting symptoms, or acuity I expect that the services needed warrant INPATIENT care.: Yes I certify that my determination is in accordance with my understanding of Medicare's requirements for reasonable and necessary INPATIENT services [42 CFR 412.3e].: Yes Medical Necessity: Risk of Complication if Not Cared For in Hospital - Plan Summary Plan Summary: Discharge to acute rehab
[2017-10-30] MEDS: LANSOPRAZOLE 15 MG TAB.RAP.DR PO SCH (06:18)
[2017-10-30] MEDS: HEPARIN SOD (PORCINE) 5,000 UNIT/ML 1 ML SYRINGE SUBCUT SCH ×3 (06:19→21:38)
[2017-10-30] MEDS: BUPROPION HCL 100 MG TABLET PO SCH ×3 (06:19→21:38)
--- NOTE | 2017-10-30 08:24 | PDOC PROGRESS REPORT ---
Subjective Progress Note for:: 10/30/17 Reason For Visit: LEFT HIP FRACTURE. 82-year-old white female postop day 3 left proximal femoral hemiarthroplasty for femoral neck fracture. Physical Exam Vital Signs: Temp Pulse Resp BP Pulse Ox 36.4 C 72 16 120/65 97 10/30/17 03:42 10/30/17 07:00 10/30/17 03:42 10/30/17 03:42 10/30/17 03:42 Intake & Output 10/29/17 10/30/17 10/31/17 05:59 06:59 06:59 Intake Total Output Total Balance General appearance: PRESENT: no acute distress Head exam: PRESENT: normocephalic Respiratory exam: PRESENT: unlabored Cardiovascular exam: PRESENT: RRR Pulses: PRESENT: +1 pedal pulses bilateral Vascular exam: PRESENT: normal capillary refill GI/Abdominal exam: PRESENT: soft Rectal exam: PRESENT: deferred Extremities exam: PRESENT: other - Left hip dressing clean dry and intact. Leg lengths are equal. Distal neurovascular examination is intact. Neurological exam: PRESENT: alert, awake, oriented to person, oriented to place , oriented to time, oriented to situation. ABSENT: motor sensory deficit Psychiatric exam: PRESENT: appropriate affect, normal mood. ABSENT: homicidal ideation, suicidal ideation Skin exam: PRESENT: dry, intact, warm. ABSENT: cyanosis, rash Results Laboratory Results: 10/28/17 07:09 10/28/17 07:09 Impressions: Pelvis X-Ray 10/27/17 00:00 IMPRESSION: SATISFACTORY POSTOPERATIVE PELVIS. Femur X-Ray 10/27/17 03:24 IMPRESSION: Acute mildly displaced subcapital fracture of the left femoral neck. Lower Extremity CT 10/27/17 03:26 IMPRESSION: 1. Acute mildly displaced subcapital fracture of the left hip. The femoral neck is displaced superiorly relative to the femoral head. Degree of displacement is significantly increased from the comparison study. This exam was performed according to our departmental dose-optimization program, which includes automated exposure control, adjustment of the mA and/or kV according to patient size and/or use of iterative reconstruction technique. Chest X-Ray 10/27/17 04:18 IMPRESSION: 1. No acute pneumonic process identified. Status: Imported from PACS Assessment & Plan - Diagnosis (1) Left displaced femoral neck fracture Is this a current diagnosis for this admission?: Yes Plan: Patient making progress with physical therapy. She ambulated 60 feet yesterday. She continues to complain of discomfort with motion of the left hip. (2) C1 cervical fracture Qualifiers: Fracture type: closed Fracture healing: with routine healing Is this a current diagnosis for this admission?: Yes (3) Constipation Is this a current diagnosis for this admission?: Yes - Time Time Spent with patient: 15-24 minutes Anticipated discharge: SNF Within: when bed available
[2017-10-30] MEDS: FAMOTIDINE 20 MG TABLET PO SCH ×2 (11:26→21:38)
[2017-10-30] MEDS: LUBIPROSTONE 24 MCG CAPSULE PO SCH ×2 (11:26→19:30)
--- NOTE | 2017-10-30 11:26 | PDOC PROGRESS REPORT ---
Subjective Progress Note for:: 10/30/17 Subjective:: KARI DAWSON is a 82 year old female admitted 10/27/2017 following a fall at home. Xray showed acute mildly displaced subcapital fracture of the left femoral neck. Dr. Osborn took the patient to the OR that day for a L hip arthroplasty. PMH includes osteoporosis, hypertension, C1-C2. Patient seen this morning on rounds. She is awake, alert, oriented and sitting in the bedside recliner. She states she had a large bowel movement this morning. Patient states that her pain is well controlled, and that she only has pain following ambulation. She is comfortable when at rest. Reason For Visit: LEFT HIP FRACTURE. Physical Exam Vital Signs: Temp Pulse Resp BP Pulse Ox 98.1 F 73 18 137/64 H 96 10/30/17 08:00 10/30/17 08:00 10/30/17 08:00 10/30/17 08:00 10/30/17 08:00 Intake & Output 10/29/17 10/30/17 10/31/17 05:59 06:59 06:59 Intake Total Output Total Balance General appearance: PRESENT: no acute distress Head exam: PRESENT: atraumatic Eye exam: PRESENT: conjunctiva pink Mouth exam: PRESENT: moist Teeth exam: PRESENT: poor dentation Neck exam: PRESENT: other - patient remains in [facility] for her C1-2 fracture Respiratory exam: PRESENT: clear to auscultation [place], symmetrical, unlabored Cardiovascular exam: PRESENT: +S1, +S2 Pulses: PRESENT: normal radial pulses, normal dorsalis pedis pul Vascular exam: PRESENT: normal capillary refill GI/Abdominal exam: PRESENT: normal bowel sounds, soft Rectal exam: PRESENT: deferred Extremities exam: PRESENT: full ROM Musculoskeletal exam: PRESENT: ambulatory - with 2 person assist, full ROM Neurological exam: PRESENT: alert, awake, oriented to person, oriented to place , oriented to time, oriented to situation Psychiatric exam: PRESENT: appropriate affect Skin exam: PRESENT: normal color Results Laboratory Results: 10/28/17 07:09 10/28/17 07:09 Impressions: Pelvis X-Ray 10/27/17 00:00 IMPRESSION: SATISFACTORY POSTOPERATIVE PELVIS. Femur X-Ray 10/27/17 03:24 IMPRESSION: Acute mildly displaced subcapital fracture of the left femoral neck. Lower Extremity CT 10/27/17 03:26 IMPRESSION: 1. Acute mildly displaced subcapital fracture of the left hip. The femoral neck is displaced superiorly relative to the femoral head. Degree of displacement is significantly increased from the comparison study. This exam was performed according to our departmental dose-optimization program, which includes automated exposure control, adjustment of the mA and/or kV according to patient size and/or use of iterative reconstruction technique. Chest X-Ray 10/27/17 04:18 IMPRESSION: 1. No acute pneumonic process identified. Status: Imported from PACS Assessment & Plan - Diagnosis (1) Left displaced femoral neck fracture Is this a current diagnosis for this admission?: Yes Plan: POD3 following left hip arthroplasty for a displaced subcapital fracture of the left hip. Pain management includes fentanyl patch, [place], and IV fentanyl for breakthrough pain. The patient states that her pain is well controlled, will continue current regimen. Physical therapy every day while inpatient, she has already been out of bed with assistance this morning. (2) C1 cervical fracture Qualifiers: Fracture type: closed Fracture healing: with routine healing Is this a current diagnosis for this admission?: Yes Plan: Patient has a history of C1-2 fracture. She was evaluated by neurosurgery at [facility]. They discharged her home with a [place] J collar, her case was deemed nonoperative. The patient is still wearing the collar, and will be for the next few weeks. (3) Cardiac murmur Is this a current diagnosis for this admission?: Yes Plan: The patient has a past medical history of aortic stenosis. Echocardiogram from February 2017 states that the degree of her stenosis is mild to moderate. (4) Essential hypertension Is this a current diagnosis for this admission?: No Plan: Patient restarted on her home antihypertensives. Blood pressure has been well controlled since her admission. (5) Constipation Qualifiers: Constipation type: drug induced constipation Qualified Code(s): K59.03 - Drug induced constipation Is this a current diagnosis for this admission?: Yes Plan: Resolved. Patient states she had a large bowel movement this morning. Continue docusate and senna. Continue on her home dose of amitzia - Time Time Spent with patient: 15-24 minutes Medications reviewed and adjusted accordingly: Yes Anticipated discharge: Home - Inpatient Certification Based on my medical assessment, after consideration of the patient's comorbidities, presenting symptoms, or acuity I expect that the services needed warrant INPATIENT care.: Yes I certify that my determination is in accordance with my understanding of Medicare's requirements for reasonable and necessary INPATIENT services [42 CFR 412.3e].: Yes Medical Necessity: Risk of Complication if Not Cared For in Hospital - Plan Summary Plan Summary: The plan is to discharge this patient to acute rehab tomorrow
[2017-10-30] MEDS: CALCIUM CARBONATE 250 MG/VITAMIN D3 125 UNIT TABLET PO SCH ×2 (11:27→19:30)
[2017-10-30] MEDS: AMLODIPINE BESYLATE 5 MG TABLET PO SCH (11:27)
[2017-10-30] MEDS: ASPIRIN 81 MG TABLET, CHEWABLE PO SCH (11:27)
[2017-10-30] MEDS: PREDNISOLONE ACETATE 1% OPH SUSP 5 ML OS SCH ×2 (11:28→19:31)
[2017-10-30] MEDS: BRIMONIDINE TARTRATE 0.2% OPH SOLN 5 ML OU SCH ×2 (11:29→19:31)
[2017-10-30] MEDS: TIMOLOL MALEATE 0.5% OPH SOLN 5 ML OU SCH ×2 (11:29→19:32)
[2017-10-30] MEDS: HYDROCODONE/ACETAMINOPHEN 5-325 MG TABLET PO PRN ×2 (12:18→19:30)
[2017-10-30] MEDS: NORMAL SALINE 1000 ML 1,000 ML IV PRN (15:31)
[2017-10-30] MEDS: FENTANYL 12 MCG/HR PATCH.TD72 TD SCH (19:31)
[2017-10-31] MEDS: HYDROCODONE/ACETAMINOPHEN 5-325 MG TABLET PO PRN ×4 (01:46→23:33)
[2017-10-31] MEDS: BUPROPION HCL 100 MG TABLET PO SCH ×3 (06:05→21:13)
[2017-10-31] MEDS: LANSOPRAZOLE 15 MG TAB.RAP.DR PO SCH (06:05)
[2017-10-31] MEDS: HEPARIN SOD (PORCINE) 5,000 UNIT/ML 1 ML SYRINGE SUBCUT SCH ×3 (06:05→21:13)
[2017-10-31] MEDS: AMLODIPINE BESYLATE 5 MG TABLET PO SCH (09:42)
[2017-10-31] MEDS: BRIMONIDINE TARTRATE 0.2% OPH SOLN 5 ML OU SCH ×2 (09:42→17:02)
[2017-10-31] MEDS: ASPIRIN 81 MG TABLET, CHEWABLE PO SCH (09:42)
[2017-10-31] MEDS: CALCIUM CARBONATE 250 MG/VITAMIN D3 125 UNIT TABLET PO SCH ×2 (09:42→17:02)
[2017-10-31] MEDS: LUBIPROSTONE 24 MCG CAPSULE PO SCH ×2 (09:43→17:01)
[2017-10-31] MEDS: FAMOTIDINE 20 MG TABLET PO SCH ×2 (09:43→21:13)
[2017-10-31] MEDS: PREDNISOLONE ACETATE 1% OPH SUSP 5 ML OS SCH ×2 (09:43→17:02)
[2017-10-31] MEDS: TIMOLOL MALEATE 0.5% OPH SOLN 5 ML OU SCH ×2 (09:43→17:02)
[2017-10-31] MEDS ORDERED: HYDROCODONE/ACETAMINOPHEN 5-325 MG TABLET PO PRN ×2 (18:00→18:25)
--- NOTE | 2017-10-31 18:04 | PDOC PROGRESS REPORT ---
Subjective Progress Note for:: 10/31/17 Subjective:: KARI DAWSON is a 82 year old female admitted 10/27/2017 following a fall at home. Xray showed acute mildly displaced subcapital fracture of the left femoral neck. Dr. Osborn took the patient to the OR that day for a L hip arthroplasty. PMH includes osteoporosis, hypertension, C1-C2. Patient seen this morning on rounds. She is awake, alert, oriented and sitting in the bedside recliner. Patient states that her pain is not well controlled today, and that she is "the most sore" she's been in the last few days. The patient reports she is moderately comfortable when at rest, but is in a lot of pain when she attempts to ambulate. Reason For Visit: LEFT HIP FRACTURE. Physical Exam Vital Signs: Temp Pulse Resp BP Pulse Ox 98.2 F 73 18 126/48 H 100 10/31/17 12:00 10/31/17 12:00 10/31/17 12:00 10/31/17 12:00 10/31/17 12:00 Intake & Output 10/30/17 10/31/17 11/01/17 06:59 06:59 06:59 Intake Total 1742 Output Total 750 Balance 992 General appearance: PRESENT: no acute distress Head exam: PRESENT: atraumatic Eye exam: PRESENT: conjunctiva pink Mouth exam: PRESENT: moist Neck exam: PRESENT: other - Patient remains in [place] J collar Respiratory exam: PRESENT: clear to auscultation [place], symmetrical, unlabored Cardiovascular exam: PRESENT: +S1, +S2 Pulses: PRESENT: normal radial pulses, normal dorsalis pedis pul GI/Abdominal exam: PRESENT: normal bowel sounds, soft Rectal exam: PRESENT: deferred Extremities exam: PRESENT: full ROM, tenderness - Left hip Musculoskeletal exam: PRESENT: ambulatory Neurological exam: PRESENT: alert, awake, oriented to person, oriented to place , oriented to time, oriented to situation Psychiatric exam: PRESENT: appropriate affect Skin exam: PRESENT: normal color Results Laboratory Results: 10/28/17 07:09 10/28/17 07:09 Impressions: Pelvis X-Ray 10/27/17 00:00 IMPRESSION: SATISFACTORY POSTOPERATIVE PELVIS. Femur X-Ray 10/27/17 03:24 IMPRESSION: Acute mildly displaced subcapital fracture of the left femoral neck. Lower Extremity CT 10/27/17 03:26 IMPRESSION: 1. Acute mildly displaced subcapital fracture of the left hip. The femoral neck is displaced superiorly relative to the femoral head. Degree of displacement is significantly increased from the comparison study. This exam was performed according to our departmental dose-optimization program, which includes automated exposure control, adjustment of the mA and/or kV according to patient size and/or use of iterative reconstruction technique. Chest X-Ray 10/27/17 04:18 IMPRESSION: 1. No acute pneumonic process identified. Assessment & Plan - Diagnosis (1) Left displaced femoral neck fracture Is this a current diagnosis for this admission?: Yes Plan: POD4 following left hip arthroplasty for a displaced subcapital fracture of the left hip. Patient stated that today she was in an increasing amount of pain, states it is the most pain she has been in in the last few days. Increased [place] from 1 tablet to 1-2 tablets based on pain scale rating. Continue fentanyl patch and IV fentanyl for breakthrough pain. Physical therapy every day while inpatient, she has already been out of bed with assistance this morning. (2) C1 cervical fracture Qualifiers: Fracture type: closed Fracture healing: with routine healing Is this a current diagnosis for this admission?: Yes Plan: Patient has a history of C1-2 fracture. She was evaluated by neurosurgery at [facility]. They discharged her home with a [place] J collar, her case was deemed nonoperative. The patient is still wearing the collar, and will be for the next few weeks. (3) Cardiac murmur Is this a current diagnosis for this admission?: Yes Plan: The patient has a past medical history of aortic stenosis. Echocardiogram from February 2017 states that the degree of her stenosis is mild to moderate. (4) Essential hypertension Is this a current diagnosis for this admission?: No Plan: Patient restarted on her home antihypertensives. Blood pressure has been well controlled since her admission. (5) Constipation Qualifiers: Constipation type: drug induced constipation Qualified Code(s): K59.03 - Drug induced constipation Is this a current diagnosis for this admission?: Yes Plan: Resolved. Patient states she had a large bowel movement this morning. Continue docusate and senna. Continue on her home dose of amitzia - Time Time Spent with patient: 15-24 minutes Anticipated discharge: Acute Rehab Within: within 24 hours - Inpatient Certification Based on my medical assessment, after consideration of the patient's comorbidities, presenting symptoms, or acuity I expect that the services needed warrant INPATIENT care.: Yes I certify that my determination is in accordance with my understanding of Medicare's requirements for reasonable and necessary INPATIENT services [42 CFR 412.3e].: Yes Medical Necessity: Risk of Complication if Not Cared For in Hospital - Plan Summary Plan Summary: Discharge to acute rehab
[2017-11-01] MEDS: HEPARIN SOD (PORCINE) 5,000 UNIT/ML 1 ML SYRINGE SUBCUT SCH ×2 (05:54→13:15)
[2017-11-01] MEDS: BUPROPION HCL 100 MG TABLET PO SCH ×2 (05:54→13:40)
[2017-11-01] MEDS: LANSOPRAZOLE 15 MG TAB.RAP.DR PO SCH (05:54)
--- NOTE | 2017-11-01 06:34 | PDOC PROGRESS REPORT ---
Subjective Progress Note for:: 11/01/17 Reason For Visit: LEFT HIP FRACTURE. 82-year-old white female status post left proximal femoral hemiarthroplasty for femoral neck fracture. Physical Exam Vital Signs: Temp Pulse Resp BP Pulse Ox 37.0 C 70 16 159/55 H 93 11/01/17 04:00 11/01/17 04:00 11/01/17 04:00 11/01/17 04:00 11/01/17 04:00 Intake & Output 10/30/17 10/31/17 11/01/17 06:59 06:59 06:59 Intake Total 1742 992 Output Total 750 700 Balance 992 292 Weight 51.7 kg General appearance: PRESENT: no acute distress Head exam: PRESENT: normocephalic Respiratory exam: PRESENT: unlabored Cardiovascular exam: PRESENT: RRR Pulses: PRESENT: +1 pedal pulses bilateral GI/Abdominal exam: PRESENT: soft Rectal exam: PRESENT: deferred Musculoskeletal exam: PRESENT: other - Left hip dressing clean dry and intact. Leg lengths are equal. Distal neurovascular examination is intact. Results Laboratory Results: 10/28/17 07:09 10/28/17 07:09 Impressions: Pelvis X-Ray 10/27/17 00:00 IMPRESSION: SATISFACTORY POSTOPERATIVE PELVIS. Femur X-Ray 10/27/17 03:24 IMPRESSION: Acute mildly displaced subcapital fracture of the left femoral neck. Lower Extremity CT 10/27/17 03:26 IMPRESSION: 1. Acute mildly displaced subcapital fracture of the left hip. The femoral neck is displaced superiorly relative to the femoral head. Degree of displacement is significantly increased from the comparison study. This exam was performed according to our departmental dose-optimization program, which includes automated exposure control, adjustment of the mA and/or kV according to patient size and/or use of iterative reconstruction technique. Chest X-Ray 10/27/17 04:18 IMPRESSION: 1. No acute pneumonic process identified. Status: Imported from PACS Assessment & Plan - Diagnosis (1) Left displaced femoral neck fracture Is this a current diagnosis for this admission?: Yes Plan: Patient making limited progress with physical therapy. [place] a [place] [facility] today. If that occurs the patient can return to see Dr. Osborn and [facility] for surgery in 2 weeks for staple removal. (2) C1 cervical fracture Qualifiers: Fracture type: closed Fracture healing: with routine healing Is this a current diagnosis for this admission?: Yes (3) Constipation Is this a current diagnosis for this admission?: Yes - Time Time Spent with patient: 15-24 minutes Anticipated discharge: SNF Within: when bed available
[2017-11-01] MEDS: HYDROCODONE/ACETAMINOPHEN 5-325 MG TABLET PO PRN (09:17)
[2017-11-01] MEDS: FAMOTIDINE 20 MG TABLET PO SCH (09:17)
[2017-11-01] MEDS: TIMOLOL MALEATE 0.5% OPH SOLN 5 ML OU SCH (09:17)
[2017-11-01] MEDS: AMLODIPINE BESYLATE 5 MG TABLET PO SCH (09:17)
[2017-11-01] MEDS: LUBIPROSTONE 24 MCG CAPSULE PO SCH (09:17)
[2017-11-01] MEDS: ASPIRIN 81 MG TABLET, CHEWABLE PO SCH (09:17)
[2017-11-01] MEDS: BRIMONIDINE TARTRATE 0.2% OPH SOLN 5 ML OU SCH (09:17)
[2017-11-01] MEDS: CALCIUM CARBONATE 250 MG/VITAMIN D3 125 UNIT TABLET PO SCH (09:17)
[2017-11-01] MEDS: PREDNISOLONE ACETATE 1% OPH SUSP 5 ML OS SCH (09:18)
--- NOTE | 2017-11-01 11:32 | PDOC TRANSFER SUMMARY ---
General - Admit/Disc Date/PCP Admission Date/Primary Care Provider: 10/27/17 05:57 DELMI ANTHONY Discharge Date: 11/01/17 - Discharge Diagnosis (1) Left displaced femoral neck fracture Is this a current diagnosis for this admission?: Yes (2) C1 cervical fracture Is this a current diagnosis for this admission?: Yes (3) Cardiac murmur Is this a current diagnosis for this admission?: Yes (4) Constipation Is this a current diagnosis for this admission?: Yes (5) Essential hypertension Is this a current diagnosis for this admission?: Yes - Additional Information Resuscitation Status: Full Code Home Medications: Amlodipine Besylate [Norvasc 5 mg Tablet] 5 mg PO DAILY 10/27/17 Aspirin [Aspirin 81 mg Chewable Tablet] 81 mg PO DAILY 10/27/17 Bupropion HCl [Wellbutrin Sr 150 mg Tablet] 1 tab PO Q12 10/27/17 Lubiprostone [Amitiza 24 Mcg Capsule] 24 mcg PO BID 10/27/17 Omeprazole 20 mg PO QHS 10/27/17 Prednisolone Acetate [Pred Forte] 1 drop OS BID 10/27/17 Brimonidine Tartrate [Alphagan 0.2% Oph Soln 5 ml] 1 drop OU BID 10/28/17 Timolol Maleate [Timoptic 0.5% Oph Soln 5 ml] 1 drop OU BID 10/28/17 Acetaminophen [Tylenol 650 mg Supp] 650 mg AZ Q4HP PRN supp.rect 11/01/17 Calcium Carbonate/Vitamin D3 [Os-Nathanael 250 mg with Vitamin D 125 Units] 1 tab PO BIDBS tablet 11/01/17 Fentanyl [Duragesic 12 Mcg/Hr Transdermal Patch] 1 each TD Q3D@1600 #2 patch.td72 11/01/17 Hydrocodone/Acetaminophen [Mira Loma 5-325 mg Tablet] 1 - 2 tab PO Q6HP PRN #24 tablet 11/01/17 Magnesium Hydroxide [Milk of Magnesia 30 ml Udcup] 30 ml PO BIDP PRN udc Sennosides/Docusate 8.6-50 mg [Senna Plus Tablet] 1 each PO BIDP PRN tablet History of Present Illness Admission Date/PCP: 10/27/17 05:57 SEDRICK THERESE, [employer] History of Present Illness: KARI DAWSON is a 82 year old female with history of C1-C2 fracture (post fall on 08/2017, currently in hard collar), osteoporosis and hypertension admitted with above-mentioned complaints. Most of the history was obtained from her daughter at bedside. The patient apparently has an unsteady gait and uses a walker to ambulate which she sometimes forgets to use it. On 10/21/2017 while standing in the kitchen, she apparently tried to turn and lost her balance. She fell onto her left side and subsequently complained of generalized pain. She was brought to this hospital 3 days later on 10/25/2017 where an x-ray of her left hip and pelvis were done. They were both negative for any acute findings so she was discharged home. The patient continued to ambulate with her walker, but yesterday evening while trying to get up off the toilet, she was unable to bear weight. She started complaining of severe left hip pain so her family decided to bring her back to the hospital for further evaluation. There was no report of any chest pain, shortness of breath, nausea vomiting, fever chills, dizziness or lightheadedness or any syncope but the patient felt nauseous yesterday. She denied any diarrhea but she has chronic constipation for about a week now. She was started recently on Amitiza by her PCP. She denied any urinary symptoms. In the ED, her temperature was not recorded, heart rate 83, respiratory rate 17 , blood pressure 155/66 with oxygen saturation of 98% on room air. Her WBC was 13.2 but her UA and chest x-ray were both negative. An x-ray of her left hip and a CAT scan of left lower extremity were done which showed acute mildly displaced subcapital fracture of the left femoral head. She received 50 mcg IV fentanyl 2. Hospital Course Hospital Course: The patient was admitted on 10/27/17 with a left displaced femoral neck fracture and C1/C2 cervical fracture from a mechanical fall at home. The patient has undergone a left hip arthroplasty by Dr. Osborn. She was evaluated by neurosurgery at [facility] who recommended that the patient wear a Rockwell J collar continuously for the next several weeks. The patient was incidentally noted to have a cardiac murmur; she does have a past medical history of moderate aortic stenosis with previous echocardiogram completed in February 2017. The patient's home antihypertensive medications were continued. The patient did develop constipation which has since resolved following docusate and senna. Her home medication, amitizia, has been continued. The patient has been participatory with PT/OT who recommended skilled rehab. The patient's pain is well controlled with fentanyl patch and as needed Mira Loma. At time of discharge, she is in stable condition, pain-free, and provided a prescription for fentanyl Duragesic patch and Mira Loma. Will be transferred to [facility] today for skilled rehabilitation. Physical Exam Vital Signs: Temp Pulse Resp BP Pulse Ox 98.2 F 77 18 134/58 H 97 11/01/17 07:33 11/01/17 07:33 11/01/17 07:33 11/01/17 07:33 11/01/17 07:33 Intake & Output 10/31/17 11/01/17 11/02/17 06:59 06:59 06:59 Intake Total 1742 992 Output Total 750 700 Balance 992 292 Weight 51.7 kg Results Laboratory Results: 10/28/17 07:09 10/28/17 07:09 Impressions: Pelvis X-Ray 10/27/17 00:00 IMPRESSION: SATISFACTORY POSTOPERATIVE PELVIS. Femur X-Ray 10/27/17 03:24 IMPRESSION: Acute mildly displaced subcapital fracture of the left femoral neck. Lower Extremity CT 10/27/17 03:26 IMPRESSION: 1. Acute mildly displaced subcapital fracture of the left hip. The femoral neck is displaced superiorly relative to the femoral head. Degree of displacement is significantly increased from the comparison study. This exam was performed according to our departmental dose-optimization program, which includes automated exposure control, adjustment of the mA and/or kV according to patient size and/or use of iterative reconstruction technique. Chest X-Ray 10/27/17 04:18 IMPRESSION: 1. No acute pneumonic process identified. Qualifiers - * PATEINT BEING DISCHARGED WITH ANY OF THE FOLLOWING DIAGNOSIS?: No
[2017-11-01 12:27] VITALS: BP 130/62
== END 2017-11-01 15:45 | DRG 470 ==
LOC: ER 02:59 → EH 05:57 → 4S 06:55
PROVIDERS: ADMIT Internal Medicine Geriatric Medicine; ATTEND Internal Medicine Geriatric Medicine
PROC: 3E0F73Z Introduction of Anti-inflammatory into Respiratory Tract, Via Natural or Artificial Opening (ICD-10-PCS; 2017-10-27)
PROC: 0SRS01A Replacement of Left Hip Joint, Femoral Surface with Metal Synthetic Substitute, Uncemented, Open Approach (ICD-10-PCS; principal; 2017-10-27 12:45)
DX: S72.012A Unspecified intracapsular fracture of left femur, initial encounter for closed fracture (principal); S12.000D Unspecified displaced fracture of first cervical vertebra, subsequent encounter for fracture with routine healing; W01.0XXA Fall on same level from slipping, tripping and stumbling without subsequent striking against object, initial encounter; K21.9 Gastro-esophageal reflux disease without esophagitis; M19.90 Unspecified osteoarthritis, unspecified site; R01.1 Cardiac murmur, unspecified; K59.03 Drug induced constipation; I10 Essential (primary) hypertension; M81.0 Age-related osteoporosis without current pathological fracture; F32.9 Major depressive disorder, single episode, unspecified; Y92.010 Kitchen of single-family (private) house as the place of occurrence of the external cause; Z79.82 Long term (current) use of aspirin; Z91.81 History of falling; Z88.0 Allergy status to penicillin; Z79.899 Other long term (current) drug therapy; Z96.659 Presence of unspecified artificial knee joint; Z90.710 Acquired absence of both cervix and uterus; Z98.42 Cataract extraction status, left eye; Z98.41 Cataract extraction status, right eye; Z87.891 Personal history of nicotine dependence; Z83.3 Family history of diabetes mellitus; Z82.49 Family history of ischemic heart disease and other diseases of the circulatory system
CPT/HCPCS: 01210; 36415; 71045; 72170; 80048; 80053; 81001; 83735; 84100; 84484; 85025; 85610; 85730; 88305; 88311; 93005; 93010; 96374; 96376; 99285; C9290; G8978-GP; G8979-GP; G8987-GO; G8988-GO; J0131; J1100; J1644; J2250; J2405; J2704; J3010; J3370; J3490; J7030; J7060; S0119

== ENCOUNTER 2018-05-29 09:27 | Emergency (ER) | payer MEDICARE ==
--- NOTE | 2018-05-29 09:42 | ER Document Report ---
ED Medical Screen (RME) - General Chief Complaint: Hip Pain Stated Complaint: HIP PAIN TRAVEL OUTSIDE OF THE [place] IN LAST 30 DAYS: No - HPI Notes: 05/29/18 09:40 sx of hip surgery now pain back of leg and hip - Related Data Allergies/Adverse Reactions: Penicillins Allergy (Intermediate, Verified 05/29/18 09:31) Past Medical History - Past Medical History Cardiac Medical History: Reports: Hx Hypertension - According to the patient/ family and based on previous records. Denies: Hx Coronary Artery Disease, Hx Heart Attack Pulmonary Medical History: Denies: Hx Asthma, Hx Bronchitis, Hx COPD, Hx Pneumonia Neurological Medical History: Denies: Hx Cerebrovascular Accident, Hx Seizures Renal/ Medical History: Denies: Hx Peritoneal Dialysis GI Medical History: Reports: Hx Gastroesophageal Reflux Disease, Hx Hiatal Hernia. Denies: Hx Hepatitis, Hx Ulcer Musculoskeltal Medical History: Reports Hx Arthritis Psychiatric Medical History: Reports: Hx Depression Infectious Medical History: Denies: Hx Hepatitis Past Surgical History: Reports: Hx Hysterectomy, Hx Orthopedic Surgery - right Knee replacement 04/2017., Hx Urinary Tract Surgery - bladder reconstruction, Other - right cornea surgery and cataract bilaterally. several bladder surgeries.. Denies: Hx Mastectomy, Hx Open Heart Surgery, Hx Pacemaker - Immunizations Hx Diphtheria, Pertussis, Tetanus Vaccination: Yes - unknown History of Influenza Vaccine for 05/2017 - 10/2017 Season: Yes Influenza Administration Date for 05/2017 - 10/2017 Season: 05/21/17 Review of Systems - Review of Systems Musculoskeletal: Other - leg pain Physical Exam - Vital signs Vitals: Temp Pulse Resp BP Pulse Ox 98.0 F 73 16 160/71 H 100 05/29/18 09:36 05/29/18 09:36 05/29/18 09:36 05/29/18 09:36 05/29/18 09:36 - Respiratory Respiratory status: No respiratory distress Chest status: Nontender Breath sounds: Normal Chest palpation: Normal Course - Vital Signs Vital signs: Temp Pulse Resp BP Pulse Ox 98.0 F 73 16 160/71 H 100 05/29/18 09:36 05/29/18 09:36 05/29/18 09:36 05/29/18 09:36 05/29/18 09:36 Doctor's Discharge - Discharge Referrals: SEDRICK SALEH FNP [Primary Care Provider] - Follow up as needed
--- NOTE | 2018-05-29 10:08 | ER Document Report ---
ED General - General Chief Complaint: Hip Pain Stated Complaint: HIP PAIN Time Seen by Provider: 05/29/18 09:42 Mode of Arrival: Wheelchair Information source: Patient, Relative TRAVEL OUTSIDE OF THE [place] IN LAST 30 DAYS: No - HPI Patient complains to provider of: Hip pain Onset: Other - 82-year-old female that presents for evaluation of pain in her left hand which is developed over a few days, she is previously had a replacement of her left hip as well as her right knee and had previously undergone physical therapy and rehab for both doing well, she does use a walker to assist in ambulation at baseline and after going to [facility] yesterday had some worsening left-sided pain. She denies any recent falls, fevers chills loss of continence or other symptoms. She denies any chest pain shortness of breath lightheadedness back pain or other symptoms. The pain in the hip is throbbing in quality and is on all sides of the hip, she is continued to have normal range of motion it is relieved if she is sitting. It is made worse by walking. - Related Data Allergies/Adverse Reactions: Penicillins Allergy (Intermediate, Verified 05/29/18 09:31) Past Medical History - General Information source: Patient, Relative - Social History Smoking Status: Never Smoker Family History: Reviewed & Not Pertinent Patient has suicidal ideation: No Patient has homicidal ideation: No - Past Medical History Cardiac Medical History: Reports: Hx Hypertension - According to the patient/ family and based on previous records. Denies: Hx Coronary Artery Disease, Hx Heart Attack Pulmonary Medical History: Denies: Hx Asthma, Hx Bronchitis, Hx COPD, Hx Pneumonia Neurological Medical History: Denies: Hx Cerebrovascular Accident, Hx Seizures Renal/ Medical History: Denies: Hx Peritoneal Dialysis GI Medical History: Reports: Hx Gastroesophageal Reflux Disease, Hx Hiatal Hernia. Denies: Hx Hepatitis, Hx Ulcer Musculoskeletal Medical History: Reports Hx Arthritis Psychiatric Medical History: Reports: Hx Depression Infectious Medical History: Denies: Hx Hepatitis Past Surgical History: Reports: Hx Hysterectomy, Hx Orthopedic Surgery - right Knee replacement 04/2017., Hx Urinary Tract Surgery - bladder reconstruction, Other - right cornea surgery and cataract bilaterally. several bladder surgeries.. Denies: Hx Mastectomy, Hx Open Heart Surgery, Hx Pacemaker - Immunizations Hx Diphtheria, Pertussis, Tetanus Vaccination: Yes - unknown Hx Pneumococcal Vaccination: 08/22/17 Review of Systems - Review of Systems -: Yes All other systems reviewed and negative Physical Exam - Vital signs Vitals: Temp Pulse Resp BP Pulse Ox 98.0 F 73 16 160/71 H 100 05/29/18 09:36 05/29/18 09:36 05/29/18 09:36 05/29/18 09:36 05/29/18 09:36 - General General appearance: Appears well - Diminutive chronically ill-appearing 82-year- old, Other In distress: None - HEENT Head: Normocephalic Eyes: Normal Conjunctiva: Normal Cornea: Normal Extraocular movements intact: Yes Eyelashes: Normal Pupils: PERRL - Respiratory Respiratory status: No respiratory distress Chest status: Nontender Breath sounds: Normal Chest palpation: Normal - Cardiovascular Rhythm: Regular Heart sounds: Normal auscultation Murmur: No - Abdominal Inspection: Normal Distension: No distension Tenderness: Nontender Organomegaly: No organomegaly - Back Back: Normal - Extremities General upper extremity: Normal inspection, Nontender, Normal ROM, Normal strength - Neurological Neuro grossly intact: Yes Cognition: Normal Orientation: AAOx4 Gary Coma Scale Eye Opening: Spontaneous Clyde Coma Scale Verbal: Oriented Clyde Coma Scale Motor: Obeys Commands Clyde Coma Scale Total: 15 Speech: Normal Cranial nerves: Normal Motor strength normal: LUE, RUE, LLE, RLE Course - Re-evaluation Re-evalutation: 05/29/18 17:23 A 2-year-old female who had images ordered through triage, images of the pelvis as well as knee and hip. Examination this patient is nonspecific pain with intact range of motion in all joints in the lower extremities. She has not had any trauma to suggest underlying fracture. We will plan for administration of analgesia including ibuprofen as she did take Tylenol this morning we will Place Lidoderm patches. X-rays do not demonstrate any acute fracture or malalignment of her hardware. Likely she has pain in the hip as a result of asymmetric gait because of her knee pain. Spoke to the her and her family about this. She has follow-up currently scheduled Dr. Alcocer this week believe it is appropriate for her to follow-up with Dr. Alcocer this week. Patient is to undergo discharge home with return precautions and instructions to utilize ibuprofen as well as Lidoderm for pain, I do not believe this represents a septic joint radio occult hip fracture or malalignment of her hardware. She was however given return precautions in case this were to be the case. - Vital Signs Vital signs: Temp Pulse Resp BP Pulse Ox 97.5 F 77 19 173/68 H 100 05/29/18 11:31 05/29/18 11:31 05/29/18 11:31 05/29/18 11:31 05/29/18 11:31 Discharge - Discharge Clinical Impression: Hip pain Qualifiers: Laterality: left Qualified Code(s): M25.552 - Pain in left hip Knee pain, chronic Qualifiers: Laterality: left Qualified Code(s): M25.562 - Pain in left knee Condition: Good Disposition: HOME, SELF-CARE Additional Instructions: Your seen today in the emergency department for your hip pain and knee pain. Had evaluation including x-rays and a physical exam. It is likely that your pain is related to arthritis and your knee pain causing an imbalance. Use Tylenol as well as Motrin to help with your pain, Tylenol 1 g every 6 hours and ibuprofen 400 mg every 8 hours. Use the cream prescribed to you twice daily to help with the pain rubbing where it hurts that. Prescriptions: Acetaminophen [Tylenol 325 mg Tablet] 975 mg PO Q6H PRN #60 tablet PRN Reason: Ibuprofen 400 mg PO TID PRN #40 tablet PRN Reason: Lidocaine HCl [Xylocaine 5% Ointment 35.44 gm] 35.44 applic TP DAILY 7 Days #2 tube Referrals: TAYO ALCOCER MD [ACTIVE STAFF] - Follow up as needed
--- NOTE | 2018-05-29 10:28 | RADIOLOGY REPORT (SQ) ---
EXAM DESCRIPTION: FEMUR LEFT COMPLETED DATE/TIME: 05/29/2018 10:12 am REASON FOR STUDY: pain COMPARISON: None. NUMBER OF VIEWS: Two views. TECHNIQUE: Two radiographic images acquired of the left femur to include hip and knee in at least on e projection. LIMITATIONS: None. FINDINGS: MINERALIZATION: Osteopenia. BONES: No acute fracture. No worrisome bone lesions. SOFT TISSUES: No obvious swelling or foreign body. OTHER: Intact bipolar hip arthroplasty. IMPRESSION: NO RADIOGRAPHIC EVIDENCE OF ACUTE INJURY. TECHNICAL DOCUMENTATION: JOB ID: [id number] [email or web address]- All Rights Reserved Reading location - IP/workstation name: [email or web address]
--- NOTE | 2018-05-29 10:30 | RADIOLOGY REPORT (SQ) ---
EXAM DESCRIPTION: KNEE LEFT 3 VIEWS COMPLETED DATE/TIME: 05/29/2018 10:12 am REASON FOR STUDY: pain COMPARISON: None. NUMBER OF VIEWS: Three views. TECHNIQUE: AP, lateral, and sunrise patella radiographic images acquired of the left knee. LIMITATIONS: Positioning. FINDINGS: MINERALIZATION: Osteopenia. BONES: No acute fracture or dislocation. No worrisome bone lesions. JOINT: Chondrocalcinosis. Joint space narrowing patellofemoral compartment. SOFT TISSUES: No soft tissue swelling. No radio-opaque foreign body. OTHER: No other significant finding. IMPRESSION: NO RADIOGRAPHIC EVIDENCE OF ACUTE INJURY. TECHNICAL DOCUMENTATION: JOB ID: [id number] [email or web address]- All Rights Reserved Reading location - IP/workstation name: [email or web address]
--- NOTE | 2018-05-29 10:32 | RADIOLOGY REPORT (SQ) ---
EXAM DESCRIPTION: HIP LEFT AP/LATERAL COMPLETED DATE/TIME: 05/29/2018 10:12 am REASON FOR STUDY: pain COMPARISON: None. NUMBER OF VIEWS: Two views. TECHNIQUE: AP pelvis and additional frog-leg view of the left hip. LIMITATIONS: None. FINDINGS: MINERALIZATION: Osteopenia. LEFT HIP: Intact bipolar arthroplasty. No fracture or dislocation. No worrisome bone lesions. RIGHT HIP: No fracture or dislocation. No worrisome bone lesions. PUBIS AND ISCHIUM: No fracture. PELVIS: No fracture. SACRUM: No fracture or dislocation. No worrisome bone lesions. LOWER LUMBAR SPINE: Spondylosis. SOFT TISSUES: No findings. OTHER: No other significant finding. IMPRESSION: NEGATIVE STUDY OF THE LEFT HIP AND PELVIS. NO RADIOGRAPHIC EVIDENCE OF ACUTE INJURY. TECHNICAL DOCUMENTATION: JOB ID: [id number] [employer]- All Rights Reserved Reading location - IP/workstation name: [email or web address]
[2018-05-29] MEDS ORDERED: LIDOCAINE 5% (700 MG) TRANSDERMAL ADH..PATCH TP ONE (10:36)
[2018-05-29] MEDS ORDERED: IBUPROFEN 400 MG TABLET PO ONE (10:39)
[2018-05-29 11:33] VITALS: BP 173/68
== END 2018-05-29 11:46 | disposition home or self-care (01) ==
LOC: ER 09:27
DX: M25.552 Pain in left hip (principal); M25.562 Pain in left knee; I10 Essential (primary) hypertension; Z96.651 Presence of right artificial knee joint; Z96.642 Presence of left artificial hip joint; Z88.0 Allergy status to penicillin
CPT/HCPCS: 99283; 73552; 73502; 73562; A9270; J3490

== ENCOUNTER → 2019-10-31 | Outpatient (CLI) | payer MEDICARE ==
--- NOTE | 2019-10-31 14:17 | RADIOLOGY REPORT (SQ) ---
EXAM DESCRIPTION: CHEST PA/LATERAL COMPLETED DATE/TIME: 10/31/2019 2:08 pm REASON FOR STUDY: PRE-OP COMPARISON: None. EXAM PARAMETERS: NUMBER OF VIEWS: two views TECHNIQUE: Digital Frontal and Lateral radiographic views of the chest acquired. RADIATION DOSE: NA LIMITATIONS: none FINDINGS: LUNGS AND PLEURA: Lung cleaning are hyperexpanded but clear. No pneumothorax. MEDIASTINUM AND HILAR STRUCTURES: No masses or contour abnormalities. HEART AND VASCULAR STRUCTURES: Heart normal size. No evidence for failure. BONES: No acute findings. HARDWARE: None in the chest. OTHER: No other significant finding. IMPRESSION: COPD. No acute findings in the chest. TECHNICAL DOCUMENTATION: JOB ID: [id number] [email or web address]- All Rights Reserved Reading location - IP/workstation name: [email or web address]
[2019-10-31 14:34] LABS: ABSOLUTE EOSINOPHILS # (AUTO) 0.3 10^3/uL (0.0-0.6); ABSOLUTE MONOCYTES (AUTO) 0.7 10^3/uL (0.1-1.4); ABSOLUTE NEUT (AUTO) 3.9 10^3/uL (1.7-8.2); BASOPHILS % (AUTO) 0.7 % (0-2); EOSINOPHILS % (AUTO) 4.3 % (0-6); HEMATOCRIT 34.8 % (36.0-47.0); HEMOGLOBIN 11.9 g/dL (12.0-15.5); LYMPHOCYTES % (AUTO) 28.4 % (13-45); MEAN CORPUSCULAR HEMOGLOBIN 31.7 pg (27.0-33.4); MEAN CORPUSCULAR HGB CONC 34.3 g/dL (32.0-36.0); MEAN CORPUSCULAR VOLUME 92 fl (80-97); MONOCYTES % (AUTO) 9.9 % (3-13); PLATELET COUNT 335 10^3/uL (150-450); RED BLOOD COUNT 3.76 10^6/uL (3.72-5.28); RED CELL DISTRIBUTION WIDTH 14.9 % (11.5-14.0); SEGMENTED NEUTROPHILS % (AUTO) 56.7 % (42-78); TOTAL CELLS COUNTED % (AUTO) 100 %
[2019-10-31 15:01] LABS: ALBUMIN 3.8 g/dL (3.5-5.0); ANION GAP 9 (5-19); BLOOD UREA NITROGEN 17 mg/dL (7-20); CALCIUM 9.2 mg/dL (8.4-10.2); CARBON DIOXIDE 28 mmol/L (22-30); CHLORIDE 103 mmol/L (98-107); GLUCOSE 112 mg/dL (75-110); POTASSIUM 4.6 mmol/L (3.6-5.0)
[2019-10-31 15:05] LABS: PREALBUMIN 21.2 mg/dL (17.6-36.0)
[2019-10-31 15:08] LABS: C-REACTIVE PROTEIN < 5.0 mg/L (<10.0)
[2019-10-31 15:27] LABS: ERYTHROCYTE SEDIMENTATION RATE 26 mm/hr (0-30)
--- NOTE | 2019-10-31 17:22 | EKG REPORT ---
SEVERITY:- NORMAL ECG - SINUS RHYTHM : Confirmed by: Nehemias Berrios 31-Oct-2019 17:21:47
[2019-11-02 13:50] LABS: APPEARANCE,URINE CLOUDY; BILIRUBIN,URINE NEGATIVE (NEGATIVE); COLOR,URINE YELLOW; GLUCOSE, URINE NEGATIVE (NEGATIVE); KETONES,URINE NEGATIVE (NEGATIVE); LEUKOCYTE ESTERASE,URINE MODERATE (NEGATIVE); NITRITE,URINE NEGATIVE (NEGATIVE); PROTEIN,URINE NEGATIVE (NEGATIVE); URINE SPECIFIC GRAVITY 1.019; UROBILINOGEN,URINE NEGATIVE mg/dL (<2.0)
== END ==
LOC: OD 13:07
PROVIDERS: ATTEND Orthopaedic Surgery
DX: Z01.818 Encounter for other preprocedural examination (principal); R94.31 Abnormal electrocardiogram [ECG] [EKG]; I10 Essential (primary) hypertension
CPT/HCPCS: 36415; 71046; 80048; 81001; 82040; 82306; 84134; 85025; 85652; 86140; 93005; 93010